=== PATIENT | male | born 1975 | race Two or more races ===

== ENCOUNTER 2022-05-28 12:04 | Outpatient (REF) | payer OTHER, SELFPAY ==
[2022-05-28 13:42] LABS: MANUAL DIFF FLAG NO
[2022-05-28 13:50] LABS: Basophils Percent Auto 0.4 % (0-2); Eosinophils Absolute Auto 0.3 X10*3/uL (0.0-0.4); Eosinophils Percent Auto 5.4 % (0-4); Hematocrit 45.2 % (42.0-52.0); Hemoglobin 14.5 g/dl (14.0-18.0); Imm Gran Abs Auto 0.01 X10*3/uL (0.00-0.03); Imm Gran Pct Auto 0.2 % (0.0-0.4); Lymphocytes Percent Auto 41.2 % (20-40); Mean Corpuscular HGB Conc 32.1 g/dl (31.0-36.0); Mean Corpuscular Hemoglobin 27.3 pg (27.0-33.0); Mean Platelet Volume 10.6 fL (9.4-12.4); Monocytes Absolute Auto 0.5 X10*3/uL (0.1-1.2); Monocytes Percent Auto 9.7 % (2-11); Neutrophils Absolute Auto 2.1 x10*3/uL (2.0-8.3); Neutrophils Percent Auto 43.1 % (45-73); Platelet Count 255 X10*3/uL (160-400); Red Blood Count 5.32 X10*6/uL (4.60-5.80); Red Cell Distribution Width 13.9 % (11.0-16.0); White Blood Count 4.9 X10*3/uL (4.8-10.8)
[2022-05-28 14:13] LABS: Alanine Aminotransferase 45 U/L (0-40); Albumin Level 3.8 g/dL (3.5-5.0); Alkaline Phosphatase 81 U/L (39-117); Anion Gap 11 (12-20); Aspartate Amino Transferase 23 U/L (5-37); Bilirubin Total 1.1 mg/dL (0.0-1.0); Blood Urea Nitrogen 7 mg/dL (9-16); Calcium 9.2 mg/dL (8.4-10.2); Carbon Dioxide 29 mmol/L (22-29); Chloride 104 mmol/L (96-108); Cholesterol 133 mg/dL; Estimated Glomerular Filt Rate > 60; Glucose Fasting 90 mg/dL (60-99); HDL Cholesterol 39 mg/dL; LDL Cholesterol Calculated 73 mg/dl; Potassium 4.9 mmol/L (3.3-5.1); Sodium 139 mmol/L (135-145); Total Protein 7.2 g/dL (6.5-8.0); Triglycerides 108 mg/dL
[2022-05-28 14:18] LABS: TSH reflex Free T4 0.57 uIU/mL (0.32-4.0)
== END 2022-05-28 12:05 | disposition home or self-care (01) ==
LOC: HO.HMGCLDS 12:04
PROVIDERS: PCP Internal Medicine; Visit Provider Internal Medicine
DX: Z00.01 Encounter for general adult medical examination with abnormal findings (principal); E66.01 Morbid (severe) obesity due to excess calories; M79.89 Other specified soft tissue disorders
CPT/HCPCS: 36415; 80053; 80061; 84443; 85025

== ENCOUNTER → 2022-07-01 13:06 | Outpatient (BNVA) | payer OTHER, SELFPAY | PROVIDERS: PCP Internal Medicine; Visit Provider Nurse Practitioner Family | DX: R06.81 Apnea, not elsewhere classified (principal); R06.83 Snoring; R40.0 Somnolence; E66.01 Morbid (severe) obesity due to excess calories; Z68.43 Body mass index [BMI] 50.0-59.9, adult | CPT/HCPCS: 99202 ==

== ENCOUNTER → 2022-07-21 10:59 | Outpatient (REF) | payer OTHER, SELFPAY | LOC: HO.SL 10:59 | PROVIDERS: PCP Internal Medicine; Visit Provider Nurse Practitioner Family | DX: G47.33 Obstructive sleep apnea (adult) (pediatric) (principal); R06.83 Snoring; R40.0 Somnolence | CPT/HCPCS: 95806 ==

== ENCOUNTER → 2022-08-24 11:15 | Outpatient (BNVA) | payer OTHER, SELFPAY | PROVIDERS: PCP Internal Medicine; Visit Provider Physician Assistant | DX: R10.13 Epigastric pain (principal); K21.9 Gastro-esophageal reflux disease without esophagitis; R19.5 Other fecal abnormalities; E66.01 Morbid (severe) obesity due to excess calories; Z68.44 Body mass index [BMI] 60.0-69.9, adult; K58.9 Irritable bowel syndrome, unspecified; Z78.9 Other specified health status | CPT/HCPCS: 99202; 99212 ==

== ENCOUNTER → 2022-09-30 13:45 | Outpatient (BNVA) | payer OTHER, SELFPAY | PROVIDERS: PCP Internal Medicine; Visit Provider Nurse Practitioner Family | DX: G47.33 Obstructive sleep apnea (adult) (pediatric) (principal); E66.01 Morbid (severe) obesity due to excess calories; Z68.44 Body mass index [BMI] 60.0-69.9, adult | CPT/HCPCS: 99212 ==

== ENCOUNTER 2022-10-02 08:42 | Outpatient (REF) | payer OTHER, SELFPAY ==
--- NOTE | ~2022-10-02 | US_ITS ---
EXAMINATION: US ABDOMEN LIMITED WITH LIVER ELASTOGRAPHY CLINICAL INFORMATION: Epigastric pain COMPARISON: Previous CT of the abdomen and pelvis September 2014 TECHNIQUE: Real-time imaging of the abdominal viscera. Noninvasive ultrasound liver fibrosis assessment is performed using [place] ElastPQ point quantification shear wave elastography (2D-SWE) with a C5-2 MHz transducer. Multiple elastography samples are obtained. Exam is limited due to patient body habitus. Grayscale and imaging of the infraumbilical abdominal wall was also performed. FINDINGS: PANCREAS: Normal. LIVER: Liver echotexture is increased. The liver demonstrates normal size, and contour. No focal lesion or intrahepatic biliary duct dilatation. The right lobe measures 15 cm in length. The left lobe measures 12 cm in length. Portal flow is normal/hepatopedal ELASTOGRAPHY is nondiagnostic as deeper parts of the liver could not be adequately sampled. Shear wave liver elastography median stiffness is 1.9 m/s (reference: normal median stiffness is 1.3 m/s or less). IQR/median stiffness to assess sampling precision is 0.07 (reference: good quality data set is IQR/median stiffness of 0.15 or less). GALLBLADDER: Surgically removed COMMON BILE DUCT: Normal in caliber measuring 0.5 cm in diameter. RIGHT KIDNEY: Normal. No hydronephrosis. No renal calculi or focal parenchymal lesions. The kidney measures 11.8 cm in maximum dimension. FREE FLUID: None. No abdominal wall abnormality is appreciated by ultrasound. US/US abdomen burris w elastography IMPRESSION: 1. Impression: Limited exam. Echogenic liver probably representing fatty infiltration. 2. Liver elastography: Nondiagnostic. REFERENCE: Society of Radiologists in Ultrasound Liver Stiffness Thresholds (2020): LIVER STIFFNESS THRESHOLDS: *Liver Stiffness equal or less than 1.3 m/s: High probability of being normal. *Liver Stiffness less than 1.7 m/s: In the absence of other known clinical signs, rules out compensated advanced chronic liver disease. *Liver Stiffness 1.7-2.1 m/s: Suggestive of compensated advanced chronic liver disease but need further test for confirmation. *Liver Stiffness over 2.1 m/s: Rules in compensated advanced chronic liver disease. *Liver Stiffness over 2.4 m/s: Suggestive of clinically significant portal hypertension. QUALITY OF DATA SET: *IQR/Median value equal or less than 0.15 implies a quality data set. *IQR/Median value over 0.15 implies a poor quality data set. SIGNIFICANT CHANGE FROM PRIOR EXAM: Significant change if liver stiffness measurement is 10% or greater from prior exam. OTHER CONSIDERATIONS: The stage of liver fibrosis may be overestimated in the setting of acute hepatitis, liver inflammation, elevated liver function tests, hepatic vascular congestion, obstructive cholestasis, non-fasting state, and infiltrative diseases such as amyloidosis and lymphoma. In some patients with NAFLD, the liver stiffness thresholds for compensated advanced chronic liver disease may be lower. In causes other than viral hepatitis and NAFLD, liver stiffness thresholds are not well established.
== END 2022-10-02 08:43 | disposition home or self-care (01) ==
LOC: HO.US 08:42
PROVIDERS: Visit Provider Physician Assistant
DX: R10.13 Epigastric pain (principal); E66.9 Obesity, unspecified
CPT/HCPCS: 76705; 76981

== ENCOUNTER 2022-10-08 08:24 | Outpatient (REF) | payer OTHER, SELFPAY ==
--- NOTE | ~2022-10-08 | FL_ITS ---
EXAMINATION: FL BARIUM SWALLOW CLINICAL INFORMATION: Z78.9 - Other specified health status. COMPARISON: Abdominal radiograph September 2014. TECHNIQUE: Barium swallow examination is performed using fluoroscopic evaluation in addition to multiple fluoroscopic spot views. The patient is imaged both upright and prone and using both thick and thin sulfate along with effervescent granules. FLUOROSCOPY TIME: 1.2 minutes TOTAL: 56.455 mGy DAP: 18.013 Gy-cm2 IMAGES: 26 screen save images FINDINGS: The swallowing mechanism is normal without aspiration or penetration. Motility is normal. No mass or ulceration or stricture. Contrast passes normally into the stomach. There is an intermittent small hiatal hernia noted with the patient in the prone position. There is no reflux with the patient in the supine position. The images of the stomach are normal. FL/FL barium swallow IMPRESSION: Small hiatal hernia identified with the patient in the prone position only. No reflux documented.
== END 2022-10-08 08:25 | disposition home or self-care (01) ==
LOC: HO.XRAY 08:24
PROVIDERS: Visit Provider Physician Assistant
DX: R10.13 Epigastric pain (principal); K21.9 Gastro-esophageal reflux disease without esophagitis; R19.5 Other fecal abnormalities; Z78.9 Other specified health status
CPT/HCPCS: 74220

== ENCOUNTER → 2023-01-06 09:51 | Outpatient (BNVA) | payer OTHER, SELFPAY | PROVIDERS: PCP Internal Medicine; Visit Provider Nurse Practitioner Family | DX: G47.33 Obstructive sleep apnea (adult) (pediatric) (principal); E66.9 Obesity, unspecified; Z99.89 Dependence on other enabling machines and devices | CPT/HCPCS: 99212 ==

== ENCOUNTER 2023-01-22 14:20 | Outpatient (REF) | payer OTHER, SELFPAY ==
--- NOTE | ~2023-01-22 | US_ITS ---
EXAMINATION: US RETROPERITONEAL LIMITED (RENAL ONLY) CLINICAL INFORMATION: Hematuria. COMPARISON: Ultrasound abdomen 10/02/2022, x-ray abdomen 09/11/2014, CT abdomen and pelvis 09/11/2014. TECHNIQUE: Real-time imaging of the kidneys. FINDINGS: RIGHT KIDNEY: 11.3 x 4.8 x 5.6 cm (SAG x AP x TRV). The kidney is normal in size, contour, and echogenicity. Renal cortical thickness is normal. No calculi or focal parenchymal lesions. No hydronephrosis. LEFT KIDNEY: 12.7 x 5.9 x 6.3 cm (SAG x AP x TRV). The kidney is normal in size, contour, and echogenicity. Renal cortical thickness is normal. No calculi or focal parenchymal lesions. No hydronephrosis. US/US renal BI IMPRESSION: Normal-appearing kidneys. A cause for the patient's hematuria has not been found.
== END 2023-01-22 14:21 | disposition home or self-care (01) ==
LOC: HO.HMGCX 14:20
PROVIDERS: PCP Internal Medicine; Visit Provider Internal Medicine
DX: R31.9 Hematuria, unspecified (principal)
CPT/HCPCS: 76775

== ENCOUNTER 2023-10-20 12:07 | Outpatient (AMB) | payer OTHER, SELFPAY ==
[2023-10-20 12:16] VITALS: BP 104/62; PULSE 65; O2SAT 98; BMI 54.4
--- NOTE | 2023-10-20 12:16 | MHC.PC.OV ---
Vital Signs 10/20/23 12:16 Height 5 ft 6 in Weight 337 lb BMI 54.4 BP 104/62 Blood Pressure Location Rt brachial Position Sitting Pulse 65 Pulse Source Pulse Oximeter Pulse Oximetry (%) 98 Oxygen Delivery Method Room Air Intake Visit Reasons: 4 Month follow up anxiety (rescheduled) Allergies No Known Allergies Allergy (Verified 10/20/23 12:18) Medication List - Last Reconciled 10/20/23 by Zaina Junior MD albuterol sulfate 90 mcg/actuation (Ventolin HFA) 1 inh inhalation QID PRN 30 days albuterol sulfate 90 mcg/actuation (ProAir HFA) 2 puffs inhalation Q4-6H PRN 30 days buspirone 5 mg PO BID PRN 90 days famotidine 20 mg PO BID hydrocortisone 2.5% 1 appl topical BID PRN 30 days nystatin 1 appl topical DAILY 30 days omeprazole 20 mg PO DAILY 90 days ondansetron mg PO Tobacco use date assessed: 10/20/23 Dental Screening Dental Screen Date: 10/20/23 Did you have a dental visit in the last 12 months?: Yes Did you have a dental problem in the last 6 months where you did not have access to dental care?: Yes Was dental information given to patient?: Patient has dentist HPI 4 Month follow up anxiety (rescheduled) HPI Details Patient is a 48-year-old male who got bit by random talk on 13 of October left side of abdomen Patient went to [facility] for treatment he was started on antibiotic and rabies vaccination. Which he is still going through. Wound is healing Patient is also feeling depressed he is currently seeing psychiatrist as well as therapist He is taking a depression medication through Psychiatry and also taking buspirone for anxiety through this office. He has developed tenia pedis and is requesting treatment I have sent Lotrisone cream that he is to apply at night until rash is resolved. Patient is morbidly obese with BMI of above 50 Continued to have swelling of his ankles off and on. And is complaining of pain in his knees as well. I have ordered labs for the patient we will also set up time for physical exam in January. He is taking famotidine and omeprazole for chronic GERD PFSH Surgical History Hx of cholecystectomy Family History Brother Substance use disorder Brother Substance use disorder Maternal Uncle Substance use disorder Paternal Uncle Substance use disorder Social History Housing: House Alcohol intake: former Patient Tobacco Use Status: Never used Tobacco e-Cigarette/Vaping Use: Never Used Substance Use Type: Marijuana service: No Current occupational status: unemployed Current occupational exposures/hazards: No Cognitive needs: No Hearing needs: No Vision needs: Yes Questionnaire PHQ-9 Over the last 2 weeks, how often have you been bothered by any of the following problems? 1. Little interest or pleasure in doing things: several days 2. Feeling down, depressed, or hopeless: several days 3. Trouble falling or staying asleep, or sleeping too much: nearly every day 4. Feeling tired or having little energy: nearly every day 5. Poor appetite or overeating: more than half the days 6. Feeling bad about yourself - or that you are a failure or have let yourself or your family down: more than half the days 7. Trouble concentrating on things, such as reading the newspaper or watching television: more than half the days 8. Moving or speaking so slowly that other people could have noticed. Or the opposite - being so fidgety or restless that you have been moving around a lot more than usual: more than half the days 9. Thoughts that you would be better off or of hurting yourself in some way: more than half the days Total score: 18 Depression Screening Interpretation: Positive Depression Screening Done: Yes 93441 - PHQ-9 Billing: Yes Source: Developed by Drs. Vish Hunter, Radha Crawley, Don Chavez and colleagues, with an educational tristian from [employer]. Thrive Questionnaire Date Thrive assessed: 10/20/23 I am a: Patient What is your living situation today?: I have a steady place to live Within the past 12 months, did the food you bought not last and you didn't have the money to get more?: Never true Within the past 12 months, did you worry whether your food would run out before you got money to buy more?: Never true Do you have trouble paying for medicines?: No Do you have trouble getting transportation to medical appointments?: No Do you have trouble paying your heating and electricity bill?: No Do you have trouble taking care of your child, family member or friend?: No Do you have trouble with day-to-day activities such as bathing, preparing meals, shopping, managing finances, etc.?: No Are you currently unemployed and looking for a job?: No Are you interested in more education?: No AUDIT C Alcohol Use Questionnaire (AUDIT-C) 1. How often do you have a drink containing alcohol?: Never Total Score: 0 ALLY-7 AMB Questionnaire ALLY-7 Date ALLY - 7 assessed: 10/20/23 Feeling nervous, anxious, or on edge: 1 = Several days Not being able to stop or control worryin = Several days Worrying too much about different things: 1 = Several days Trouble relaxin = Several days Being so restless that it is hard to sit still: 0 = Not at all Becoming easily annoyed or irritable: 1 = Several days Feeling afraid as if something awful might happen: 1 = Several days Total ALLY-7 score (0-4 normal; 5-9 mild; 10-14 moderate; 15-21 severe): 6 Source: Developed by Drs. Vish Hunter, Radha Crawley, Don Chavez and colleagues, with an educational tristian from [employer]. ALLY-7 Assessment Billing ALLY-7 Assessment Tool: ALLY-7 Assessment 23266 Review of Systems Const Denies chills and Denies fever(s) ENT Denies epistaxis and Denies nasal discharge Card Denies chest pain Resp Denies chest congestion, Denies cough and Denies hemoptysis GI Denies diarrhea and Denies nausea Neuro Reports no additional complaints Psych Reports no additional complaints Endo Reports no additional complaints Physical exam (Primary Care) Vital Signs: Last Vital Signs Pulse 65 10/20/23 12:16 BP 104/62 10/20/23 12:16 Pulse Ox 98 10/20/23 12:16 Oxygen Delivery Method Room Air 10/20/23 12:16 BMI result Body Mass Index 54.4 Tobacco/Smoking Status: Tobacco use Status Tobacco use date assessed 10/20/23 10/20/23 12:20 Patient Tobacco Use Status Never used Tobacco 10/20/23 12:20 e-Cigarette/Vaping Use Never Used 10/20/23 12:20 PHQ-9: PHQ-9 Score PHQ-9: Total score 18 10/20/23 12:42 Depression Screening Interpretation: Positive Thrive Assessment: Date of Thrive Assessment Date Thrive assessed 10/20/23 10/20/23 12:24 Const General: cooperative, comfortable and no acute distress Orientation/consciousness: patient oriented x3 HENMT Head: Yes normocephalic Eyes General: appearance normal, both eyes and all related structures Neck Neck: Yes supple Resp Effort & Inspection: normal respiratory effort, no cough and no stridor Cardio Rhythm: regular rhythm Heart sounds: S1 normal heart sound present and S2 normal heart sound present GI Abdomen image: 1. Dog bite borjas wound healing Skin Other: Tinea pedis both feet General skin exam: turgor normal Neuro General: patient oriented x3, tone normal and moves all extremities Extrem Right lower extremity: no edema Left lower extremity: no edema Assessment and Plan Assessment & Plan (1) Dog bite of abdomen: Code(s): S31.159A - Open bite of abdominal wall, unspecified quadrant without penetration into peritoneal cavity, initial encounter; W54.0XXA - Bitten by dog, initial encounter (2) Tinea pedis of both feet: Code(s): B35.3 - Tinea pedis (3) Major depression, recurrent: Code(s): F33.9 - Major depressive disorder, recurrent, unspecified Qualifiers: Active/Remission status: currently active Major depression episode severity: mild Qualified Code(s): F33.0 - Major depressive disorder, recurrent, mild (4) Morbid obesity due to excess calories: Code(s): E66.01 - Morbid (severe) obesity due to excess calories (5) Sleep apnea in adult: Code(s): G47.30 - Sleep apnea, unspecified (6) Anxiety, generalized: Code(s): F41.1 - Generalized anxiety disorder (7) Acid reflux: Code(s): K21.9 - Gastro-esophageal reflux disease without esophagitis Qualifiers: Esophagitis presence: without esophagitis Qualified Code(s): K21.9 - Gastro-esophageal reflux disease without esophagitis (8) CARLA (obstructive sleep apnea): Comment: Severe degree of sleep apnea. The total AHI was 24/hr and oxygen frederick was 71 %. Code(s): G47.33 - Obstructive sleep apnea (adult) (pediatric) Plan Patient is a 48-year-old male who got bit by random talk on 13 of October left side of abdomen Patient went to [facility] for treatment he was started on antibiotic and rabies vaccination. Which he is still going through. Wound is healing Patient is also feeling depressed he is currently seeing psychiatrist as well as therapist He is taking a depression medication through Psychiatry and also taking buspirone for anxiety through this office. He has developed tenia pedis and is requesting treatment I have sent Lotrisone cream that he is to apply at night until rash is resolved. Patient is morbidly obese with BMI of above 50, I did offer weight loss program appointment which patient declined at this time he said he will think about it Continued to have swelling of his ankles off and on. And is complaining of pain in his knees as well. I have ordered labs for the patient we will also set up time for physical exam in January. He is taking famotidine and omeprazole for chronic GERD Sleep apnea treatment through neurology, patient happened appointment in December Orders: Orders Lipid Panel Today E66.01 - Morbid (severe) obesity due to excess calories, F33.9 - Major depressive disorder, recurrent, unspecified, F41.1 - Generalized anxiety disorder, G47.30 - Sleep apnea, unspecified, G47.33 - Obstructive sleep apnea (adult) (pediatric), K21.9 - Gastro-esophageal reflux disease without esophagitis TSH reflex Free T4 Today E66.01 - Morbid (severe) obesity due to excess calories, F33.9 - Major depressive disorder, recurrent, unspecified, F41.1 - Generalized anxiety disorder, G47.30 - Sleep apnea, unspecified, G47.33 - Obstructive sleep apnea (adult) (pediatric), K21.9 - Gastro-esophageal reflux disease without esophagitis Complete Blood Count Auto Diff Today E66.01 - Morbid (severe) obesity due to excess calories, F33.9 - Major depressive disorder, recurrent, unspecified, F41.1 - Generalized anxiety disorder, G47.30 - Sleep apnea, unspecified, G47.33 - Obstructive sleep apnea (adult) (pediatric), K21.9 - Gastro-esophageal reflux disease without esophagitis Comprehensive [place]. Panel Fast Today E66.01 - Morbid (severe) obesity due to excess calories, F33.9 - Major depressive disorder, recurrent, unspecified, F41.1 - Generalized anxiety disorder, G47.30 - Sleep apnea, unspecified, G47.33 - Obstructive sleep apnea (adult) (pediatric), K21.9 - Gastro-esophageal reflux disease without esophagitis Medications: New clotrimazole-betamethasone 1-0.05 % 1 appl topical ONCE 45 grams 3RF foot rash 30 days Coding Level of Care Code Est Pt Level 4 (29855) Diagnoses Dog bite of abdomen S31.159A; W54.0XXA Tinea pedis of both feet B35.3 Mild episode of recurrent major depressive disorder F33.0 Active/Remission status: currently active Major depression episode severity: mild Morbid obesity due to excess calories E66.01 Sleep apnea in adult G47.30 Anxiety, generalized F41.1 Gastroesophageal reflux disease without esophagitis K21.9 Esophagitis presence: without esophagitis CARLA (obstructive sleep apnea) G47.33 Additional Codes ALLY-7 Assessment Billing - ALLY-7 Assessment Tool: ALLY-7 Assessment 56539 ([id number])
== END 2023-10-20 16:49 | disposition home or self-care (01) ==
PROVIDERS: PCP Internal Medicine; Visit Provider Internal Medicine
DX: S31.159A Open bite of abdominal wall, unspecified quadrant without penetration into peritoneal cavity, initial encounter (principal); F33.0 Major depressive disorder, recurrent, mild; E66.01 Morbid (severe) obesity due to excess calories; Z68.43 Body mass index [BMI] 50.0-59.9, adult; W54.0XXA Bitten by dog, initial encounter; B35.3 Tinea pedis; G47.30 Sleep apnea, unspecified; F41.1 Generalized anxiety disorder; K21.9 Gastro-esophageal reflux disease without esophagitis; G47.33 Obstructive sleep apnea (adult) (pediatric)
CPT/HCPCS: 96127; 99214

== ENCOUNTER 2024-01-26 08:48 | Outpatient (REF) | payer OTHER, SELFPAY ==
[2024-01-26 10:17] LABS: MANUAL DIFF FLAG NO
[2024-01-26 10:22] LABS: Basophils Percent Auto 0.5 % (0-2); Eosinophils Absolute Auto 0.1 X10*3/uL (0.0-0.4); Eosinophils Percent Auto 3.6 % (0-4); Hematocrit 45.3 % (42.0-52.0); Imm Gran Abs Auto 0.01 X10*3/uL (0.00-0.03); Imm Gran Pct Auto 0.3 % (0.0-0.4); Lymphocytes Absolute Auto 1.9 X10*3/uL (1.2-4.9); Lymphocytes Percent Auto 48.7 % (20-40); Mean Corpuscular HGB Conc 33.1 g/dl (31.0-36.0); Mean Corpuscular Hemoglobin 28.3 pg (27.0-33.0); Mean Corpuscular Volume 85.5 fL (80.0-98.0); Mean Platelet Volume 11.1 fL (9.4-12.4); Monocytes Absolute Auto 0.4 X10*3/uL (0.1-1.2); Monocytes Percent Auto 9.7 % (2-11); Neutrophils Absolute Auto 1.5 x10*3/uL (2.0-8.3); Neutrophils Percent Auto 37.2 % (45-73); Platelet Count 239 X10*3/uL (160-400); White Blood Count 3.9 X10*3/uL (4.8-10.8)
[2024-01-26 11:16] LABS: Alanine Aminotransferase 18 U/L (0-40); Albumin Level 3.5 g/dL (3.5-5.0); Alkaline Phosphatase 74 U/L (39-117); Anion Gap 8 (12-20); Aspartate Amino Transferase 13 U/L (5-37); Bilirubin Total 0.9 mg/dL (0.0-1.0); Blood Urea Nitrogen 9 mg/dL (9-16); Calcium 9.3 mg/dL (8.4-10.2); Carbon Dioxide 30 mmol/L (22-29); Chloride 105 mmol/L (96-108); Cholesterol 116 mg/dL (<200); Estimated Glomerular Filt Rate > 60; Glucose Fasting 91 mg/dL (60-99); HDL Cholesterol 33 mg/dL (>40); LDL Cholesterol Calculated 59 mg/dL (<100); Potassium 4.1 mmol/L (3.3-5.1); Sodium 139 mmol/L (135-145); TSH reflex Free T4 0.58 uIU/mL (0.32-4.0); Triglycerides 122 mg/dL (<150)
== END 2024-01-26 08:49 | disposition home or self-care (01) ==
LOC: HO.HMGCLDS 08:48
PROVIDERS: PCP Internal Medicine; Visit Provider Internal Medicine
DX: F33.9 Major depressive disorder, recurrent, unspecified (principal); E66.01 Morbid (severe) obesity due to excess calories; F41.1 Generalized anxiety disorder; K21.9 Gastro-esophageal reflux disease without esophagitis; G47.33 Obstructive sleep apnea (adult) (pediatric)
CPT/HCPCS: 36415; 80053; 80061; 84443; 85025

== ENCOUNTER 2024-02-25 13:18 | Outpatient (AMB) | payer OTHER, SELFPAY ==
[2024-02-25 13:27] VITALS: BP 106/78; PULSE 73; O2SAT 98; BMI 53.0
--- NOTE | 2024-02-25 13:27 | A.OFFPC_ITS ---
Vital Signs 02/25/24 13:27 Height 5 ft 6 in Weight 328 lb 6 oz BMI 53.0 BP 106/78 Blood Pressure Location Rt brachial Position Sitting Pulse 73 Pulse Source Pulse Oximeter Pulse Oximetry (%) 98 Oxygen Delivery Method Room Air Intake Visit Reasons: Annual PE Allergies No Known Allergies Allergy (Verified 02/25/24 13:29) Medication List - Last Reconciled 02/25/24 by Zaina Junior MD albuterol sulfate 90 mcg/actuation (Ventolin HFA) 1 inh inhalation QID PRN 30 days albuterol sulfate 90 mcg/actuation (ProAir HFA) 2 puffs inhalation Q4-6H PRN 30 days buspirone 5 mg PO BID PRN 90 days clotrimazole-betamethasone 1-0.05 % 1 appl topical ONCE 30 days famotidine 20 mg PO BID hydrocortisone 2.5% 1 appl topical BID PRN 30 days nystatin 1 appl topical DAILY 30 days omeprazole 20 mg PO DAILY 90 days ondansetron mg PO Tobacco use date assessed: 02/25/24 Dental Screening Dental Screen Date: 02/25/24 Did you have a dental visit in the last 12 months?: Yes Did you have a dental problem in the last 6 months where you did not have access to dental care?: No Was dental information given to patient?: Patient has dentist HPI Annual PE HPI Details Physical exam appointment Due for colonoscopy Patient is complaining of pain right hip and left knee I have ordered x-rays for the patient and he will be evaluated by Orthopedic Medication list reviewed Asthma is stable Anxiety is stable patient is on buspirone 5 mg 2 tablets in the morning and then 1 later in the day Patient is morbidly obese with BMI of 53.0, he has a small ventral l hernia below umbilicus as well For that I would recommend to lose weight before he have any surgical intervention GERD: He is taking famotidine 20 mg and omeprazole 20 mg We talked about diet-controlled to avoid all those food that worsened his symptoms. He will return in 4 months for follow-up appointment 1 year physical exam Labs done recently reviewed [facility] Surgical History Hx of cholecystectomy Family History Brother Substance use disorder Brother Substance use disorder Maternal Uncle Substance use disorder Paternal Uncle Substance use disorder Social History Housing: House Alcohol intake: former Patient Tobacco Use Status: Never used Tobacco e-Cigarette/Vaping Use: Never Used Substance Use Type: Marijuana service: No Current occupational status: unemployed Current occupational exposures/hazards: No Cognitive needs: No Hearing needs: No Vision needs: Yes Questionnaire PHQ-9 Over the last 2 weeks, how often have you been bothered by any of the following problems? 1. Little interest or pleasure in doing things: several days 2. Feeling down, depressed, or hopeless: several days 3. Trouble falling or staying asleep, or sleeping too much: more than half the days 4. Feeling tired or having little energy: more than half the days 5. Poor appetite or overeating: more than half the days 6. Feeling bad about yourself - or that you are a failure or have let yourself or your family down: more than half the days 7. Trouble concentrating on things, such as reading the newspaper or watching television: several days 8. Moving or speaking so slowly that other people could have noticed. Or the opposite - being so fidgety or restless that you have been moving around a lot more than usual: several days 9. Thoughts that you would be better off or of hurting yourself in some way: several days Total score: 13 Depression Screening Interpretation: Positive Depression Screening Follow-up: Existing condition and In treatment Depression Screening Done: Yes 43256 - PHQ-9 Billing: Yes Source: Developed by Drs. Vish Hunter, Radha Crawley, Don Chavez and colleagues, with an educational tristian from [employer]. Thrive Questionnaire Date Thrive assessed: 02/25/24 What is your living situation today?: I do not have a steady places to live I am temporarily staying with others Within the past 12 months, did the food you bought not last and you didn't have the money to get more?: Sometimes True Within the past 12 months, did you worry whether your food would run out before you got money to buy more?: Sometimes True Do you have trouble paying for medicines?: No Do you have trouble getting transportation to medical appointments?: No Do you have trouble paying your heating and electricity bill?: No Do you have trouble taking care of your child, family member or friend?: No Do you have trouble with day-to-day activities such as bathing, preparing meals, shopping, managing finances, etc.?: No Are you currently unemployed and looking for a job?: No Are you interested in more education?: No Please select the resources that you would like help with: Housing/Penitentiary, Transportation and Job search/training Currently or been in a relationship where the following occur: no concerns reported THRIVE Score: 3 AUDIT C Alcohol Use Questionnaire (AUDIT-C) 1. How often do you have a drink containing alcohol?: Never 3. How often do you have six or more drinks on one occasion?: Never Total Score: 0 Score Reviewed/Action Taken: Yes ALLY-7 AMB Questionnaire ALLY-7 Date ALLY - 7 assessed: 02/25/24 Feeling nervous, anxious, or on edge: 1 = Several days Not being able to stop or control worryin = Several days Worrying too much about different things: 1 = Several days Trouble relaxin = Several days Being so restless that it is hard to sit still: 1 = Several days Becoming easily annoyed or irritable: 1 = Several days Feeling afraid as if something awful might happen: 1 = Several days Total ALLY-7 score (0-4 normal; 5-9 mild; 10-14 moderate; 15-21 severe): 7 Source: Developed by Drs. Vish Hunter, Radha Crawley, Don Chavez and colleagues, with an educational tristian from [employer]. ALLY-7 Assessment Billing ALLY-7 Assessment Tool: ALLY-7 Assessment 56269 Review of Systems Const Denies chills, Denies fever(s) and Denies headache(s) Eyes Denies blurry vision ENT Denies headache(s), Denies nasal discharge, Denies nasal obstruction, Denies odynophagia and Denies sinus pain Card Denies chest pain at rest and Denies chest pain with activity Resp Denies cough and Denies hemoptysis GI Denies diarrhea, Denies odynophagia, Denies vomiting and Denies hematemesis Reports as per HPI Musc Denies abnormal gait Skin/Breast Reports as per HPI Neuro Denies Neuro-related abnormal movements, Denies Abnormal speech present, Denies abnormal gait, Denies headache(s) and Denies Sensory deficit (Neuro) Psych Denies mood swings and Denies paranoia Endo Reports as per HPI Denny/Lymph Reports as per HPI Aller/Immun Reports as per HPI Physical exam (Primary Care) Vital Signs: Last Vital Signs Pulse 73 02/25/24 13:27 BP 106/78 02/25/24 13:27 Pulse Ox 98 02/25/24 13:27 Oxygen Delivery Method Room Air 02/25/24 13:27 BMI result Body Mass Index 53.0 Tobacco/Smoking Status: Tobacco use Status Tobacco use date assessed 02/25/24 02/25/24 13:29 Patient Tobacco Use Status Never used Tobacco 02/25/24 13:29 e-Cigarette/Vaping Use Never Used 02/25/24 13:29 PHQ-9: PHQ-9 Score PHQ-9: Total score 13 02/25/24 13:31 Depression Screening Interpretation: Positive Depression Screening Follow-up: Existing condition and In treatment Thrive Assessment: Date of Thrive Assessment Date Thrive assessed 02/25/24 02/25/24 13:31 Currently or been in a relationship where the following occur: no concerns reported Const General: cooperative, comfortable and no acute distress Orientation/consciousness: patient oriented x3 HENMT Head: Yes normocephalic and Yes atraumatic Eyes General: appearance normal, both eyes and all related structures Pupils: Equal, round and reactive pupils present EOM: EOMs intact bilaterally Neck Neck: Yes supple and No lymphadenopathy Thyroid: Thyroid normal Lymphatic: no lymphadenopathy noted Resp Effort & Inspection: normal respiratory effort and able to speak in complete sentences Auscultation: clear to auscultation bilaterally Cardio Heart sounds: S1 normal heart sound present and S2 normal heart sound present GI Other: Small bulge below umbilicus which is difficulty appreciate laying down Palpation (GI): Soft to palpation and nontender Auscultation: normal bowel sounds General: Yes no CVA tenderness Back/Spine/Pelvis Back: no CVA tenderness Skin General skin exam: elasticity normal and turgor normal Neuro General: patient oriented x3 and gait normal Cranial nerves: Yes Equal, round and reactive pupils present Speech: No Abnormal speech present Sensory Exam: No Sensory deficit (Neuro) Coordination: tandem gait normal and Romberg test negative Extrem General: Yes normal exam except as noted and No edema Assessment and Plan Assessment & Plan (1) Encounter for general adult medical examination with abnormal findings: Code(s): Z00.01 - Encounter for general adult medical examination with abnormal findings (2) Hip pain, right: Code(s): M25.551 - Pain in right hip (3) Knee pain, left: Code(s): M25.562 - Pain in left knee Qualifiers: Chronicity: acute Qualified Code(s): M25.562 - Pain in left knee (4) Colon cancer screening: Code(s): Z12.11 - Encounter for screening for malignant neoplasm of colon (5) Morbid obesity due to excess calories: Code(s): E66.01 - Morbid (severe) obesity due to excess calories (6) Major depression, recurrent: Code(s): F33.9 - Major depressive disorder, recurrent, unspecified Qualifiers: Active/Remission status: currently active Major depression episode severity: mild Qualified Code(s): F33.0 - Major depressive disorder, recurrent, mild (7) Sleep apnea in adult: Code(s): G47.30 - Sleep apnea, unspecified (8) Anxiety, generalized: Code(s): F41.1 - Generalized anxiety disorder (9) Ventral hernia: Code(s): K43.9 - Ventral hernia without obstruction or gangrene Qualifiers: Obstruction and gangrene presence: without obstruction or gangrene Qualified Code(s): K43.9 - Ventral hernia without obstruction or gangrene Plan Physical exam appointment Due for colonoscopy Patient is complaining of pain right hip and left knee I have ordered x-rays for the patient and he will be evaluated by Orthopedic Medication list reviewed Asthma is stable Anxiety is stable patient is on buspirone 5 mg 2 tablets in the morning and then 1 later in the day Patient is morbidly obese with BMI of 53.0, he has a small ventral l hernia below umbilicus as well For that I would recommend to lose weight before he have any surgical intervention GERD: He is taking famotidine 20 mg and omeprazole 20 mg We talked about diet-controlled to avoid all those food that worsened his symptoms. He will return in 4 months for follow-up appointment 1 year physical exam Labs done recently reviewed Orders: Orders XR knee LT 2V Today M25.562 - Pain in left knee XR hip RT min 2V Today M25.551 - Pain in right hip Referrals Orthopedics Referral M25.551 - Pain in right hip, M25.562 - Pain in left knee Gastroenterology Referral Z12.11 - Encounter for screening for malignant neoplasm of colon Coding Level of Care Code Est Pt Prev Care 40-64y(91133) Diagnoses Encounter for general adult medical examination with abnormal findings Z00.01 Hip pain, right M25.551 Acute pain of left knee M25.562 Chronicity: acute Colon cancer screening Z12.11 Morbid obesity due to excess calories E66.01 Mild episode of recurrent major depressive disorder F33.0 Active/Remission status: currently active Major depression episode severity: mild Sleep apnea in adult G47.30 Anxiety, generalized F41.1 Ventral hernia without obstruction or gangrene K43.9 Obstruction and gangrene presence: without obstruction or gangrene Additional Codes ALLY-7 Assessment Billing - ALLY-7 Assessment Tool: ALLY-7 Assessment 45953 ([id number])
== END 2024-02-25 13:45 | disposition home or self-care (01) ==
PROVIDERS: PCP Internal Medicine; Visit Provider Internal Medicine
DX: Z00.00 Encounter for general adult medical examination without abnormal findings (principal); E66.01 Morbid (severe) obesity due to excess calories; F33.0 Major depressive disorder, recurrent, mild; Z68.43 Body mass index [BMI] 50.0-59.9, adult; M25.551 Pain in right hip; M25.562 Pain in left knee; K43.9 Ventral hernia without obstruction or gangrene; K21.9 Gastro-esophageal reflux disease without esophagitis; Z12.11 Encounter for screening for malignant neoplasm of colon; G47.30 Sleep apnea, unspecified; F41.1 Generalized anxiety disorder
CPT/HCPCS: 99396

== ENCOUNTER 2024-02-25 13:49 | Outpatient (REF) | payer OTHER, SELFPAY ==
--- NOTE | ~2024-02-25 | XR_ITS ---
EXAMINATION: XR KNEE, LEFT CLINICAL INFORMATION: Pain. COMPARISON: None available. TECHNIQUE: AP and lateral views of the left knee. FINDINGS: No fracture or joint effusion. Alignment is anatomic. Joint spaces are maintained. No abnormal soft tissue calcification. XR/XR knee LT 2V IMPRESSION: Normal left knee.
--- NOTE | ~2024-02-25 | XR_ITS ---
EXAMINATION: XR HIP, RIGHT CLINICAL INFORMATION: Pain. COMPARISON: None available. TECHNIQUE: AP and frog-leg lateral views of the right hip are submitted. FINDINGS: No fracture. Alignment is anatomic. Hip joint space is maintained. Soft tissues are unremarkable. XR/XR hip RT min 2V IMPRESSION: Normal right hip.
== END 2024-02-25 13:50 | disposition home or self-care (01) ==
LOC: HO.HMGCX 13:49
PROVIDERS: PCP Internal Medicine; Visit Provider Internal Medicine
DX: M25.562 Pain in left knee (principal); M25.551 Pain in right hip
CPT/HCPCS: 73502; 73560

== ENCOUNTER 2024-03-15 13:45 | Outpatient (AMB) | payer OTHER, SELFPAY ==
--- NOTE | 2024-03-15 13:50 | MHC.OFFVIS ---
Vital Signs 03/15/24 13:52 Height 5 ft 6 in Weight 328 lb BMI 52.9 Intake Visit Reasons: 2 Month FU-CONF Intake Note: Patient presents for 2 month follow up. Patient still waking up with anxiety while using machine Allergies No Known Allergies Allergy (Verified 03/15/24 14:02) Medication List - Last Reconciled 03/15/24 by ELIZABETH Lowe albuterol sulfate 90 mcg/actuation (Ventolin HFA) 1 inh inhalation QID PRN 30 days albuterol sulfate 90 mcg/actuation (ProAir HFA) 2 puffs inhalation Q4-6H PRN 30 days buspirone 5 mg PO BID PRN 90 days clonidine HCl 0.1 mg PO BEDTIME clotrimazole-betamethasone 1-0.05 % 1 appl topical ONCE 30 days escitalopram oxalate 20 mg PO DAILY famotidine 20 mg PO BID hydrocortisone 2.5% 1 appl topical BID PRN 30 days nystatin 1 appl topical DAILY 30 days omeprazole 20 mg PO DAILY 90 days ondansetron mg PO sertraline 50 mg PO DAILY HPI Comments Details: 48-yr-old male presents for follow-up visit of sleep apnea. Pt has not been using his APAP machine, as when he uses it, he wakes up feeling like he cannot breathe which triggers anxiety. Once anxious, he has to get OOB and walk around until he calms down. He states he is only able to sleep 4-5 hrs per night, and is very tired and sleepy during the day. Pt denies taking any OTC sleep agents or alcohol. He is on Clonidine 0.1mg per psych. Previous PAP compliance report, 07/04/23 - 10/01/23- showed minimal use, but when pt did use APA [id number], he had residual AHI 19.6/hr w/ central apnea events 12.9/hr. PFSH Surgical History Hx of cholecystectomy Family History Brother Substance use disorder Brother Substance use disorder Maternal Uncle Substance use disorder Paternal Uncle Substance use disorder Social History Housing: House Alcohol intake: former Patient Tobacco Use Status: Never used Tobacco e-Cigarette/Vaping Use: Never Used Substance Use Type: Marijuana service: No Current occupational status: unemployed Current occupational exposures/hazards: No Cognitive needs: No Hearing needs: No Vision needs: Yes Review of Systems Const All systems reviewed & are unremarkable except as noted in HPI and below Physical Exam Vital Signs: BMI result Body Mass Index 52.9 Const General: no acute distress Orientation/consciousness: patient oriented x3 Resp Effort & Inspection: able to speak in complete sentences Neuro General: patient oriented x3 Psych Mental Status: mental status grossly normal Speech and movement: Clear speech present Attitude: cooperative Assessment & Plan Assessment & Plan (1) CARLA (obstructive sleep apnea): Comment: Severe degree of sleep apnea. The total AHI was 24/hr and oxygen frederick was 71 %. Code(s): G47.33 - Obstructive sleep apnea (adult) (pediatric) Category: Medical (2) Complex sleep apnea syndrome: Code(s): G47.31 - Primary central sleep apnea Category: Medical (3) Obesity: Comment: Obesity -worsening Code(s): E66.9 - Obesity, unspecified Category: Medical Plan Pt advised to undergo in-lab PAP titration study to identify optimal PAP tx pressure settings, as pt is not tolerating current APAP [id number] tx and on APAP, he is having high levels of residual sleep apnea, primarily from central apnea. f/u upon review of above and in-clinic in 6 months or sooner pr. Orders: Orders RT PSG in-lab sleep titration Today E66.9 - Obesity, unspecified, G47.31 - Primary central sleep apnea, G47.33 - Obstructive sleep apnea (adult) (pediatric) Coding Level of Care Code Est Pt Level 3 (14621) Diagnoses CARLA (obstructive sleep apnea) G47.33 Complex sleep apnea syndrome G47.31 Obesity E66.9
[2024-03-15 13:52] VITALS: BMI 52.9
== END 2024-03-15 14:47 | disposition home or self-care (01) ==
PROVIDERS: PCP Internal Medicine; Visit Provider Nurse Practitioner Family
DX: G47.33 Obstructive sleep apnea (adult) (pediatric) (principal); G47.31 Primary central sleep apnea; E66.9 Obesity, unspecified
CPT/HCPCS: 99213

== ENCOUNTER → 2024-03-15 13:45 | Outpatient (BNVA) | payer OTHER, SELFPAY | PROVIDERS: PCP Internal Medicine; Visit Provider Nurse Practitioner Family | DX: G47.33 Obstructive sleep apnea (adult) (pediatric) (principal); G47.31 Primary central sleep apnea; E66.9 Obesity, unspecified; Z68.43 Body mass index [BMI] 50.0-59.9, adult | CPT/HCPCS: 99212 ==

== ENCOUNTER 2024-04-11 08:27 | Outpatient (REF) | payer OTHER, SELFPAY | END 2024-04-11 08:28 | disposition home or self-care (01) | LOC: HO.HOSX 08:27 | PROVIDERS: Visit Provider Physician Assistant | DX: Z13.89 Encounter for screening for other disorder (principal) ==

== ENCOUNTER 2024-05-16 07:55 | Outpatient (REF) | payer OTHER, SELFPAY ==
--- NOTE | ~2024-05-16 | XR_ITS ---
EXAMINATION: XR PELVIS CLINICAL INFORMATION: Pain unspecified hip. COMPARISON: 02/25/2024. TECHNIQUE: AP view of the pelvis. FINDINGS: Mild degenerative changes with joint space narrowing and hypertrophic change on AP views of the bilateral hips. Pubic symphysis and bilateral sacroiliac joints are maintained. XR/XR pelvis 1-2V IMPRESSION: Mild degenerative changes bilateral hips.
== END 2024-05-16 07:56 | disposition home or self-care (01) ==
LOC: HO.HOSX 07:55
PROVIDERS: Visit Provider Physician Assistant
DX: M53.3 Sacrococcygeal disorders, not elsewhere classified (principal); G89.29 Other chronic pain
CPT/HCPCS: 72170; 99202

== ENCOUNTER 2024-05-16 11:03 | Outpatient (AMB) | payer OTHER, SELFPAY ==
[2024-05-16 11:10] VITALS: BMI 52.9
--- NOTE | 2024-05-16 11:10 | A.OFFVIS_ITS ---
Vital Signs 05/16/24 11:10 Height 5 ft 6 in Weight 328 lb BMI 52.9 Intake Visit Reasons: new pt - right hip pain Intake Note: [place] 49 year old male who presents today as a new patient for an evaluation of right hip pain. Patient reports pain has been present for about 2 years, denies injury. No previous tx. His pain is located at the lateral aspect of hip that radiates down his leg. He describes his pain as a burning sensation with occasional numbness or tingling. Finds very little to no relief with Tylenol or Motrin. Allergies No Known Allergies Allergy (Verified 05/16/24 11:16) Medication List - Last Reconciled 05/16/24 by Troy Danielle PA-C albuterol sulfate 90 mcg/actuation (Ventolin HFA) 1 inh inhalation QID PRN 30 days albuterol sulfate 90 mcg/actuation (ProAir HFA) 2 puffs inhalation Q4-6H PRN 30 days buspirone 5 mg PO BID PRN 90 days clonidine HCl 0.1 mg PO BEDTIME clotrimazole-betamethasone 1-0.05 % 1 appl topical ONCE 30 days famotidine 20 mg PO BID hydrocortisone 2.5% 1 appl topical BID PRN 30 days nystatin 1 appl topical DAILY 30 days omeprazole 20 mg PO DAILY 90 days ondansetron mg PO sertraline 50 mg PO DAILY HPI HPI new pt - right hip pain: Details: 49-year-old male who presents to the office today for an evaluation of right hip pain for 2 years. He states he has pain and burning sensation at the lateral aspect of his hip that radiates down to his leg. He also experiences occasional numbness and tingling as well as occasional back pain. He deses any groin pain. He finds minimal relief with Tylenol and Motrin. He denies any injury and has not had any treatment in the past. [facility] Surgical History Hx of cholecystectomy Family History Brother Substance use disorder Brother Substance use disorder Maternal Uncle Substance use disorder Paternal Uncle Substance use disorder Social History Housing: House Alcohol intake: former Patient Tobacco Use Status: Never used Tobacco e-Cigarette/Vaping Use: Never Used Substance Use Type: Marijuana service: No Current occupational status: unemployed Current occupational exposures/hazards: No Cognitive needs: No Hearing needs: No Vision needs: Yes Review of Systems Const All systems reviewed & are unremarkable except as noted in HPI and below Physical Exam Vital Signs: BMI result Body Mass Index 52.9 Const General: cooperative, healthy appearing, comfortable, no acute distress, well developed and alert Orientation/consciousness: patient oriented x3 HEENT Head: Yes normal to inspection, Yes normocephalic and Yes atraumatic Eyes General: appearance normal, both eyes and all related structures Resp Effort & Inspection: normal respiratory effort and able to speak in complete sentences Cardio Rate: regular rate Peripheral pulses: Peripheral pulses 2+ throughout GI Palpation (GI): Soft to palpation Skin Lesions: no lesions Rashes: no rashes Neuro General: patient oriented x3 Extrem Other: Right hip: Normal to inspection. No pain with ROM of the hip. Pain along the greater trochanter. No pain with hip flexion or abduction. Positive tenderness along the SI joint, Positive SLR. NVI. Results Reviewed Results Reviewed: Xrays were obtained in the office today and personally reviewed by me of the right hip are negative for acute or chronic abnormalities. Assessment & Plan Assessment & Plan (1) Chronic right SI joint pain: Code(s): M53.3 - Sacrococcygeal disorders, not elsewhere classified; G89.29 - Other chronic pain Category: Medical Plan We discussed options which include PT, NSAIDs and injections. The patient will defer on the injection today and proceed with PT and NSAIDs. If symptoms persist, she will contact me for an injection, otherwise, PRN.I also referred him to our mixer operator vacuum pan salt for further evaluation. I also referred him to our mixer operator vacuum pan salt for further evaluation. Orders: Orders XR pelvis 1-2V Today Eula Martinez PA-C M25.559 - Pain in unspecified hip PT Evaluation and Treatment Today Troy Danielle PA-C G89.29 - Other chronic pain, M53.3 - Sacrococcygeal disorders, not elsewhere classified Patient Instructions: Scribed for Troy Danielle PA-C, by David Milian medical massage therapist, on 05/16/2024 at 11:00 AM EST.? I, Troy Danielle PA-C, have personally reviewed and agree with the information entered by the scribe. Coding Level of Care Code New Pt Level 3 (90205) Diagnoses Chronic right SI joint pain M53.3; G89.29
== END 2024-05-16 11:36 | disposition home or self-care (01) ==
PROVIDERS: PCP Internal Medicine; Visit Provider Physician Assistant
DX: M53.3 Sacrococcygeal disorders, not elsewhere classified (principal); G89.29 Other chronic pain
CPT/HCPCS: 99203

== ENCOUNTER → 2024-05-19 00:39 | Outpatient (BNV) | payer OTHER, SELFPAY | PROVIDERS: Visit Provider Psychiatry & Neurology Neurology | DX: G47.33 Obstructive sleep apnea (adult) (pediatric) (principal); G47.31 Primary central sleep apnea; E66.9 Obesity, unspecified | CPT/HCPCS: 95811 ==

== ENCOUNTER → 2024-05-19 22:05 | Outpatient (REF) | payer OTHER, SELFPAY | LOC: HO.SL 22:05 | PROVIDERS: Visit Provider Nurse Practitioner Family | DX: G47.33 Obstructive sleep apnea (adult) (pediatric) (principal); G47.31 Primary central sleep apnea; E66.9 Obesity, unspecified | CPT/HCPCS: 95811 ==

== ENCOUNTER → 2024-07-21 04:20 | Outpatient (BNV) | payer OTHER, SELFPAY | PROVIDERS: PCP Internal Medicine; Visit Provider Psychiatry & Neurology Neurology | DX: G47.31 Primary central sleep apnea (principal); G47.33 Obstructive sleep apnea (adult) (pediatric) | CPT/HCPCS: 95811 ==

== ENCOUNTER → 2024-07-21 20:30 | Outpatient (REF) | payer OTHER, SELFPAY | LOC: HO.SL 20:30 | PROVIDERS: PCP Internal Medicine; Visit Provider Nurse Practitioner Family | DX: G47.31 Primary central sleep apnea (principal); G47.33 Obstructive sleep apnea (adult) (pediatric) | CPT/HCPCS: 95811 ==

== ENCOUNTER 2024-08-09 08:12 | Outpatient (REF) | payer OTHER, SELFPAY | END 2024-08-09 08:13 | disposition home or self-care (01) | LOC: HO.HOSX 08:12 | PROVIDERS: Visit Provider Physician Assistant | DX: Z13.89 Encounter for screening for other disorder (principal) ==

== ENCOUNTER 2024-09-05 08:40 | Outpatient (AMB) | payer OTHER, SELFPAY ==
[2024-09-05 08:44] VITALS: BP 122/80; PULSE 81; O2SAT 97; BMI 48.3
--- NOTE | 2024-09-05 08:44 | MHC.PC.OV ---
Vital Signs 09/05/24 08:44 Height 5 ft 6 in Weight 299 lb 8 oz BMI 48.3 BP 122/80 Blood Pressure Location Lt brachial Position Sitting Pulse 81 Pulse Source Pulse Oximeter Pulse Oximetry (%) 97 Oxygen Delivery Method Room Air Intake Visit Reasons: [id number] Allergies No Known Allergies Allergy (Verified 09/05/24 08:44) Medication List - Last Reconciled 09/05/24 by Zaina Junior MD albuterol sulfate 90 mcg/actuation (Ventolin HFA) 1 inh inhalation QID PRN 30 days albuterol sulfate 90 mcg/actuation (ProAir HFA) 2 puffs inhalation Q4-6H PRN 30 days buspirone 5 mg PO BID PRN 90 days clonidine HCl 0.1 mg PO BEDTIME clotrimazole-betamethasone 1-0.05 % 1 appl topical ONCE 30 days famotidine 20 mg PO BID hydrocortisone 2.5% 1 appl topical BID PRN 30 days nystatin 1 appl topical DAILY 30 days omeprazole 20 mg PO DAILY 90 days ondansetron mg PO sertraline 50 mg PO DAILY Tobacco use date assessed: 09/05/24 Dental Screening Dental Screen Date: 09/05/24 Did you have a dental visit in the last 12 months?: Yes Did you have a dental problem in the last 6 months where you did not have access to dental care?: No Was dental information given to patient?: Patient has dentist HPI [id number] HPI Details Patient is a 49-year-old morbidly obese gentleman with a history of GERD, history of cholecystectomy, history of severe depression, history of sleep apnea on CPAP machine Patient is seeing Neurology for sleep apnea Gastroenterology for GERD Psychiatrist and therapist for depression He is taking sertraline 50 mg along with buspirone 5 mg b.i.d. and clonidine 0.5 at night through psychiatrist Famotidine b.i.d. and omeprazole through Gastroenterology Patient is complaining of feeling pain in his legs along with swelling in his ankle if he stands for too long or sit with its feet hanging I have placed a referral for him to see a vascular specialist Patient is getting no medication from this office He will return for physical exam appointment Patient is aware that he needs to lose weight. [facility] Medical History Encounter for general adult medical examination with abnormal findings Swelling of lower extremity Sleep apnea in adult Change in bowel function Snoring Witnessed apneic spells Daytime sleepiness Erythematous rash Tinea corporis Complex sleep apnea syndrome Tinea pedis of both feet Dog bite of abdomen Colon cancer screening Surgical History Hx of cholecystectomy Family History Brother Substance use disorder Brother Substance use disorder Maternal Uncle Substance use disorder Paternal Uncle Substance use disorder Social History Housing: House Alcohol intake: former Patient Tobacco Use Status: Never used Tobacco e-Cigarette/Vaping Use: Never Used Substance Use Type: Marijuana service: No Current occupational status: unemployed Current occupational exposures/hazards: No Cognitive needs: No Hearing needs: No Vision needs: Yes Questionnaire PHQ-9 Over the last 2 weeks, how often have you been bothered by any of the following problems? 1. Little interest or pleasure in doing things: several days 2. Feeling down, depressed, or hopeless: several days 3. Trouble falling or staying asleep, or sleeping too much: several days 4. Feeling tired or having little energy: several days 5. Poor appetite or overeating: several days 6. Feeling bad about yourself - or that you are a failure or have let yourself or your family down: several days 7. Trouble concentrating on things, such as reading the newspaper or watching television: several days 8. Moving or speaking so slowly that other people could have noticed. Or the opposite - being so fidgety or restless that you have been moving around a lot more than usual: not at all 9. Thoughts that you would be better off or of hurting yourself in some way: not at all Total score: 7 Depression Screening Interpretation: Negative Depression Screening Done: Yes 85227 - PHQ-9 Billing: Yes Source: Developed by Drs. Vish Hunter, Radha Crawley, Don Chavez and colleagues, with an educational tristian from [employer]. Thrive Questionnaire Date Thrive assessed: 09/05/24 I am a: Patient What is your living situation today?: I do not have a steady places to live I am temporarily staying with others Within the past 12 months, did the food you bought not last and you didn't have the money to get more?: Sometimes True Within the past 12 months, did you worry whether your food would run out before you got money to buy more?: Sometimes True Do you have trouble paying for medicines?: No Do you have trouble getting transportation to medical appointments?: No Do you have trouble paying your heating and electricity bill?: Yes Do you have trouble taking care of your child, family member or friend?: No Do you have trouble with day-to-day activities such as bathing, preparing meals, shopping, managing finances, etc.?: No Are you currently unemployed and looking for a job?: Yes Are you interested in more education?: No Currently or been in a relationship where the following occur: No concerns reported THRIVE Score: 4 AUDIT C Alcohol Use Questionnaire (AUDIT-C) 1. How often do you have a drink containing alcohol?: Monthly or less 2. How many drinks containing alcohol do you have on a typical day when you are drinking?: 1 or 2 Total Score: 1 Score Reviewed/Action Taken: Yes ALLY-7 AMB Questionnaire ALLY-7 Date ALLY - 7 assessed: 02/25/24 Source: Developed by Drs. Vish Hunter, Radha Crawley, Don Chavez and colleagues, with an educational tristian from [employer]. Review of Systems Const Denies chills and Denies fever(s) ENT Denies epistaxis and Denies nasal discharge Card Denies chest pain Resp Denies chest congestion, Denies cough and Denies hemoptysis GI Denies diarrhea and Denies nausea Skin/Breast Denies rash Neuro Reports no additional complaints Psych Reports no additional complaints Endo Reports no additional complaints Physical exam (Primary Care) Vital Signs: Last Vital Signs Pulse 81 09/05/24 08:44 BP 122/80 09/05/24 08:44 Pulse Ox 97 09/05/24 08:44 Oxygen Delivery Method Room Air 09/05/24 08:44 BMI result Body Mass Index 48.3 Tobacco/Smoking Status: Tobacco use Status Tobacco use date assessed 09/05/24 09/05/24 08:46 Patient Tobacco Use Status Never used Tobacco 09/05/24 08:46 e-Cigarette/Vaping Use Never Used 09/05/24 08:46 PHQ-9: PHQ-9 Score PHQ-9: Total score 7 09/05/24 09:04 Depression Screening Interpretation: Negative Thrive Assessment: Date of Thrive Assessment Date Thrive assessed 09/05/24 09/05/24 08:53 Currently or been in a relationship where the following occur: No concerns reported Const General: cooperative, comfortable and no acute distress Orientation/consciousness: patient oriented x3 HENMT Head: Yes normocephalic Eyes General: appearance normal, both eyes and all related structures Neck Neck: Yes supple Resp Effort & Inspection: normal respiratory effort, no cough and no stridor Cardio Rhythm: regular rhythm Heart sounds: S1 normal heart sound present and S2 normal heart sound present Skin General skin exam: turgor normal Neuro General: patient oriented x3, tone normal and moves all extremities Extrem Right lower extremity: no edema Left lower extremity: no edema Coding Level of Care Code Est Pt Level 4 (34760) Complex EM visit Add On G2211 Diagnoses Varicose veins of both legs with edema I83.893 Laterality: bilateral CARLA (obstructive sleep apnea) G47.33 Gastroesophageal reflux disease without esophagitis K21.9 Esophagitis presence: without esophagitis Anxiety, generalized F41.1 Mild episode of recurrent major depressive disorder F33.0 Active/Remission status: currently active Major depression episode severity: mild Morbid obesity due to excess calories E66.01 Assessment & Plan Assessment & Plan (1) Varicose veins of leg with swelling: Code(s): I83.899 - Varicose veins of unspecified lower extremity with other complications Category: Medical Qualifiers: Laterality: bilateral Qualified Code(s): I83.893 - Varicose veins of bilateral lower extremities with other complications (2) CARLA (obstructive sleep apnea): Comment: Severe degree of sleep apnea. The total AHI was 24/hr and oxygen frederick was 71 %. Code(s): G47.33 - Obstructive sleep apnea (adult) (pediatric) Category: Medical (3) Acid reflux: Code(s): K21.9 - Gastro-esophageal reflux disease without esophagitis Category: Medical Qualifiers: Esophagitis presence: without esophagitis Qualified Code(s): K21.9 - Gastro-esophageal reflux disease without esophagitis (4) Anxiety, generalized: Code(s): F41.1 - Generalized anxiety disorder Category: Medical (5) Major depression, recurrent: Code(s): F33.9 - Major depressive disorder, recurrent, unspecified Category: Medical Qualifiers: Active/Remission status: currently active Major depression episode severity: mild Qualified Code(s): F33.0 - Major depressive disorder, recurrent, mild (6) Morbid obesity due to excess calories: Code(s): E66.01 - Morbid (severe) obesity due to excess calories Category: Medical Plan Patient is a 49-year-old morbidly obese gentleman with a history of GERD, history of cholecystectomy, history of severe depression, history of sleep apnea on CPAP machine Patient is seeing Neurology for sleep apnea Gastroenterology for GERD Psychiatrist and therapist for depression He is taking sertraline 50 mg along with buspirone 5 mg b.i.d. and clonidine 0.5 at night through psychiatrist Famotidine b.i.d. and omeprazole through Gastroenterology Patient is complaining of feeling pain in his legs along with swelling in his ankle if he stands for too long or sit with its feet hanging I have placed a referral for him to see a vascular specialist On exam today I was not able to appreciate external varicose vein, and at this time in the morning his ankles are not swollen Patient is getting no medication from this office He will return for physical exam appointment Patient is aware that he needs to lose weight. Orders: Referrals Vascular Surgery Referral I83.899 - Varicose veins of unspecified lower extremity with other complications
== END 2024-09-05 09:18 | disposition home or self-care (01) ==
LOC: HO.HMCC 08:41
PROVIDERS: PCP Internal Medicine; Visit Provider Internal Medicine
DX: I83.893 Varicose veins of bilateral lower extremities with other complications (principal); F33.0 Major depressive disorder, recurrent, mild; E66.01 Morbid (severe) obesity due to excess calories; Z68.42 Body mass index [BMI] 45.0-49.9, adult; G47.33 Obstructive sleep apnea (adult) (pediatric); K21.9 Gastro-esophageal reflux disease without esophagitis; F41.1 Generalized anxiety disorder

== ENCOUNTER → 2024-09-05 08:40 | Outpatient (BNVA) | payer OTHER, SELFPAY | PROVIDERS: PCP Internal Medicine; Visit Provider Internal Medicine | DX: I83.893 Varicose veins of bilateral lower extremities with other complications (principal); G47.33 Obstructive sleep apnea (adult) (pediatric); K21.9 Gastro-esophageal reflux disease without esophagitis; F41.1 Generalized anxiety disorder; F33.0 Major depressive disorder, recurrent, mild; E66.01 Morbid (severe) obesity due to excess calories; Z68.42 Body mass index [BMI] 45.0-49.9, adult | CPT/HCPCS: 96127; 99212 ==

== ENCOUNTER 2024-09-06 09:45 | Outpatient (REF) | payer OTHER, SELFPAY | END 2024-09-06 09:46 | disposition home or self-care (01) | LOC: HO.HOSX 09:45 | PROVIDERS: Visit Provider Physician Assistant | DX: Z13.89 Encounter for screening for other disorder (principal) ==

== ENCOUNTER 2024-11-13 09:36 | Outpatient (REF) | payer OTHER, SELFPAY ==
--- NOTE | ~2024-11-13 | XR_ITS ---
EXAMINATION: XR KNEE 1-2 VIEWS LEFT, XR KNEE 1 VIEW RIGHT HISTORY: M25.562 - Pain in left knee COMPARISON: Comparison is made with the prior examination of the left knee dated 02/25/2024. FINDINGS: Standing AP views of both knees and an additional sunrise patellar view of the left knee are submitted. Osseous mineralization is normal. There is no fracture or dislocation. There is mild narrowing of the medial compartment of the left knee. The soft tissues are unremarkable. XR/XR knee LT 2V IMPRESSION: Mild narrowing of the medial compartment of the left knee. Electronically signed by: Vish Miranda MD 11/16/2024 02:41 PM EST
--- NOTE | ~2024-11-13 | XR_ITS ---
EXAMINATION: XR KNEE 1-2 VIEWS LEFT, XR KNEE 1 VIEW RIGHT HISTORY: M25.562 - Pain in left knee COMPARISON: Comparison is made with the prior examination of the left knee dated 02/25/2024. FINDINGS: Standing AP views of both knees and an additional sunrise patellar view of the left knee are submitted. Osseous mineralization is normal. There is no fracture or dislocation. There is mild narrowing of the medial compartment of the left knee. The soft tissues are unremarkable. XR/XR knee RT 1V IMPRESSION: Mild narrowing of the medial compartment of the left knee. Electronically signed by: Vish Miranda MD 11/16/2024 02:41 PM EST
== END 2024-11-13 09:37 | disposition home or self-care (01) ==
LOC: HO.HOSX 09:36
PROVIDERS: Visit Provider Physician Assistant
DX: M25.561 Pain in right knee (principal); M25.562 Pain in left knee; M17.12 Unilateral primary osteoarthritis, left knee
CPT/HCPCS: 73560; 99212; J1010; J2003

== ENCOUNTER 2024-11-13 14:29 | Outpatient (AMB) | payer OTHER, SELFPAY ==
--- NOTE | 2024-11-13 14:39 | MHC.OFFVIS ---
Vital Signs 11/13/24 14:44 Height 5 ft 6 in Weight 270 lb BMI 43.6 Intake Visit Reasons: New Prob-Left knee pain Intake Note: Sedrick 49 year old male who presents today as a new patient for an evaluation of left knee pain. Patient reports his pain started about 1 yr ago. States his pain is worse when he bends his knee, when twisting knee, feels like his bones are grinding together, knee gives out and swelling. At time he has tingling from time to time. Denies injection, P.T or any use of knee brace. Allergies No Known Allergies Allergy (Verified 11/13/24 14:43) Medication List - Last Reviewed 11/13/24 by BIJAL Hamilton albuterol sulfate 90 mcg/actuation (Ventolin HFA) 1 inh inhalation QID PRN 30 days albuterol sulfate 90 mcg/actuation (ProAir HFA) 2 puffs inhalation Q4-6H PRN 30 days buspirone 5 mg PO BID PRN 90 days clonidine HCl 0.1 mg PO BEDTIME clotrimazole-betamethasone 1-0.05 % 1 appl topical ONCE 30 days famotidine 20 mg PO BID hydrocortisone 2.5% 1 appl topical BID PRN 30 days nystatin 1 appl topical DAILY 30 days omeprazole 20 mg PO DAILY 90 days ondansetron mg PO sertraline 50 mg PO DAILY HPI HPI New Prob-Left knee pain: Details: 49-year-old gentleman presents to the office today for left knee pain. He states the pain has been ongoing for several months but it has been worsened over the last several weeks. He has pain with going up and down stairs. He states he feels a grinding sensation behind the anterior portion of the knee. He has had no prior treatment to date. [facility] Medical History Encounter for general adult medical examination with abnormal findings Swelling of lower extremity Sleep apnea in adult Change in bowel function Snoring Witnessed apneic spells Daytime sleepiness Erythematous rash Tinea corporis Complex sleep apnea syndrome Tinea pedis of both feet Dog bite of abdomen Colon cancer screening Surgical History Hx of cholecystectomy Family History Brother Substance use disorder Brother Substance use disorder Maternal Uncle Substance use disorder Paternal Uncle Substance use disorder Social History (Updated 11/13/24 @ 14:44 by Linda Zepeda [facility]) Housing: House Alcohol intake: former Patient Tobacco Use Status: Never used Tobacco e-Cigarette/Vaping Use: Never Used Substance Use Type: Marijuana service: No Current occupational status: unemployed 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 Current occupational exposures/hazards: No Cognitive needs: No Hearing needs: No Vision needs: Yes Review of Systems Const All systems reviewed & are unremarkable except as noted in HPI and below Physical Exam Vital Signs: BMI result Body Mass Index 43.6 Const General: cooperative and no acute distress Orientation/consciousness: patient oriented x3 Resp Effort & Inspection: normal respiratory effort and able to speak in complete sentences Cardio Peripheral pulses: Peripheral pulses 2+ throughout Neuro General: patient oriented x3 Extrem Other: Left knee skin intact, no erythema or joint effusion. Tenderness along the medial joint line. ROM full with crepitus. Negative steinmans. No ligamentous laxity. NVI. Results Reviewed Results Reviewed: X-rays of the left knee obtained in the office today show lateralization of the patella with osteophyte formation. Assessment & Plan Assessment & Plan (1) Patellofemoral arthritis of left knee: Code(s): M17.12 - Unilateral primary osteoarthritis, left knee Category: Medical Plan: We discussed options today which include physical therapy, an order was placed today. We also discussed the benefits of steroid injections which she consented for today. Patient tolerated procedure well. He was fit for a stabilized knee brace today. He will increase activities as tolerated and if symptoms persist or worsen over the next 6-8 weeks she will contact our office otherwise follow up as needed. Orders: Orders XR knee RT 1V Today M25.561 - Pain in right knee XR knee LT 2V Today M25.562 - Pain in left knee Coding Level of Care Code Est Pt Level 3 (14597) Complex EM visit Add On G2211 Diagnoses Patellofemoral arthritis of left knee M17.12
[2024-11-13 14:44] VITALS: BMI 43.6
== END 2024-11-13 14:57 | disposition home or self-care (01) ==
PROVIDERS: PCP Internal Medicine; Visit Provider Physician Assistant
DX: M17.12 Unilateral primary osteoarthritis, left knee (principal)
CPT/HCPCS: 99213; G2211

== ENCOUNTER 2024-11-14 10:59 | Outpatient (AMB) | payer OTHER, SELFPAY ==
--- NOTE | 2024-11-14 11:02 | MHC.OFFVIS ---
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 States he has had this problem for about 3 years but it has gotten worse recently. The right leg is worse. He gets leg swelling and cramps. Says he gets injections for his knee. 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 It has been affecting their daily activities including walking, standing, and physical activity. It is noted more so in right leg. He is a nonsmoker and not a diabetic. Patient denies any previous venous surgery or injections. Patient denies any history of DVT/ PE. Patient denies any history of phlebitis. Trial of compression includes - nothing at this point They now present for vascular evaluation regarding their varicose veins. [facility] Medical History Encounter for general adult medical examination with abnormal findings Swelling of lower extremity Sleep apnea in adult Change in bowel function Snoring Witnessed apneic spells Daytime sleepiness Erythematous rash Tinea corporis Complex sleep apnea syndrome Tinea pedis of both feet Dog bite of abdomen Colon cancer screening Surgical History Hx of cholecystectomy Family History Brother Substance use disorder Brother Substance use disorder Maternal Uncle Substance use disorder Paternal Uncle Substance use disorder Social History (Updated 11/13/24 @ 14:44 by BIJAL Hamilton) Housing: House Alcohol intake: former Patient Tobacco Use Status: Never used Tobacco e-Cigarette/Vaping Use: Never Used Substance Use Type: Marijuana service: No Current occupational status: unemployed 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 Current occupational exposures/hazards: No Cognitive needs: No Hearing needs: No Vision needs: Yes Review of Systems Const Reports as per HPI and Denies weakness ENT Reports Normal hearing present and Denies dizziness Card Reports as per HPI, Denies chest pain, Denies chest pain at rest, Denies chest pain with activity, Denies dyspnea and Denies dyspnea on exertion Resp Reports as per HPI, Denies cough, Denies dyspnea and Denies dyspnea on exertion GI Reports as per HPI, Denies abdominal pain, Denies nausea and Denies vomiting Musc Denies numbness Skin/Breast Reports as per HPI, Denies erythema and Denies wounds Neuro Reports Normal hearing present, Denies dizziness, Denies numbness, Denies Sensory deficit (Neuro) and Denies weakness Psych Reports no additional complaints Endo Reports no additional complaints Physical Exam Const General: healthy appearing and no acute distress Orientation/consciousness: patient oriented x3 HEENT Head: Yes normal to inspection Ears: hearing grossly normal bilaterally Mouth: Normal oral and palatal mucosa present Resp Effort & Inspection: normal respiratory effort and able to speak in complete sentences Auscultation: clear to auscultation bilaterally Cardio Jugular venous distension: no JVD Rate: regular rate Rhythm: regular rhythm Heart sounds: S1 normal heart sound present and S2 normal heart sound present Bruits: no abdominal aortic bruits, no carotid bruits, no femoral bruits and no renal bruits Peripheral pulses: Peripheral pulses 2+ throughout GI Inspection: Yes normal to inspection Palpation (GI): No Abdominal aortic bruit present Skin General skin exam: no rashes or lesions noted Wounds: no wounds Hair: normal Neuro General: patient oriented x3 Cranial nerves: Yes Normal hearing present Cognition (Neuro): normal cognition Gait exam (Neuro): Normal gait present Motor exam (neuro): 5/5 motor strength present throughout Sensory Exam: No Sensory deficit (Neuro) Extrem Other: Bilateral lower extremities: 1+ peripheral edema noted. Palpable DP pulses. Discoloration noted from the mid cassidy down to the feet, circumferentially. Multiple areas of spider veins noted bilaterally. Right lower extremity: Rope-like tortuosity noted in the upper medial thigh area. CEAP: C - 4 E - primary A - superficial P - reflux General: Yes normal to inspection, Yes full ROM, Yes capillary refill normal and Yes normal gait Assessment & Plan Assessment & Plan (1) Varicose veins of both lower extremities with inflammation: Code(s): I83.11 - Varicose veins of right lower extremity with inflammation; I83.12 - Varicose veins of left lower extremity with inflammation Category: Medical Plan: Ivan is presenting today as a referral from his PCP for ongoing swelling, pain, cramping, and fatigue of the bilateral lower extremities. States this has been going on for several years now, worsening. He is currently being treated for arthritis in his knees. In short, the patient has evidence of venous insufficiency. I have discussed the pathophysiology with the patient. In addition I have provided informational material regarding venous disease to the patient. We have discussed conservative measures including compression, elevation, and exercise. We are able to provide him with 3 pairs of compression stockings. I have taken the liberty of ordering venous insufficiency testing with the patient. They will follow up with me after testing. The patient had an opportunity to ask questions regarding the treatment plan. All questions were answered. Imaging studies, laboratory studies and physical exam results were discussed and reviewed in detail. No major barriers to understanding were identified. The patient expressed understanding and agreement with the above treatment plan. The patient is aware they should contact our office by phone for worsening of the current condition or the appearance of new symptoms. Thank you for allowing me to participate in the vascular care of this patient. If you have any questions or concerns regarding the treatment for the above condition please do not hesitate to contact me. The office telephone contact is [phone]. This note is constructed using voice recognition software. While every effort has been made to ensure accuracy, shank piece tacker errors may have been included. Thank you for allowing me to participate in the care of your patient. Yours sincerely, LAYLA Baptiste Orders: Orders US venous duplex LE BI 1 Week I83.11 - Varicose veins of right lower extremity with inflammation, I83.12 - Varicose veins of left lower extremity with inflammation Coding Level of Care Code New Pt Level 4 (47553) Diagnoses Varicose veins of both lower extremities with inflammation I83.11; I83.12
== END 2024-11-14 11:26 | disposition home or self-care (01) ==
PROVIDERS: PCP Internal Medicine; Visit Provider Physician Assistant Surgical
DX: I83.11 Varicose veins of right lower extremity with inflammation (principal); I83.12 Varicose veins of left lower extremity with inflammation
CPT/HCPCS: 99204

== ENCOUNTER → 2024-11-14 10:59 | Outpatient (BNVA) | payer OTHER, SELFPAY | PROVIDERS: PCP Internal Medicine; Visit Provider Physician Assistant Surgical | DX: I83.12 Varicose veins of left lower extremity with inflammation (principal); I83.11 Varicose veins of right lower extremity with inflammation | CPT/HCPCS: 99202 ==

== ENCOUNTER 2024-11-28 08:28 | Outpatient (REF) | payer OTHER, SELFPAY ==
--- NOTE | ~2024-11-28 | US_ITS ---
EXAMINATION: US LOWER EXTREMITY VENOUS (REFLUX EXAM), BILATERAL CLINICAL INFORMATION: Varices COMPARISON: None. TECHNIQUE: Color flow triplex imaging and compression Doppler was performed to evaluate both the deep and the superficial systems bilaterally. To evaluate the superficial system, the examination was performed in the upright position. Color-flow Doppler ultrasound and compression ultrasound were utilized. In addition, maneuvers were utilized to demonstrate reflux. FINDINGS: 1. DEEP VENOUS ULTRASOUND OF THE RIGHT LOWER EXTREMITY: Common Femoral Vein: Compressible, normal respiratory variation and augmented flow. Femoral Vein: Compressible, normal color flow and augmentation. Popliteal Vein: Compressible, normal augmentation. Deep Reflux: There is no evidence of reflux in the deep system in either the common femoral vein, superficial femoral or the popliteal vein. There is no evidence of a Vaughan's cyst. 2. SUPERFICIAL ULTRASOUND WITH DOPPLER OF RIGHT LOWER EXTREMITY: GREAT SAPHENOUS VEIN: Saphenofemoral Junction: 0.9 cm; Reflux: 0 ms Proximal Thigh: 0.5 cm; Reflux: 0 ms Mid Thigh: 0.2 cm; Reflux: 0 ms Distal Thigh: 0.3 cm; Reflux: 0 ms At Knee: 0.3 cm; Reflux: 0 ms Proximal Calf: 0.3 cm; Reflux: 0 ms Mid Calf: 0.3 cm; Reflux: 0 ms Distal Calf: 0.2 cm; Reflux: 0 ms DUPLICATED MEDIAL GREAT SAPHENOUS VEIN: Diameter: None imaged Reflux: NA DUPLICATED LATERAL GREAT SAPHENOUS VEIN: Diameter: None imaged Reflux: NA SMALL SAPHENOUS VEIN: Saphenopopliteal Junction: 0.2 cm; Reflux: 0 ms Proximal: 0.2 cm; Reflux: 0 ms Distal: 0.2 cm; Reflux: 0 ms VEIN OF GIACOMINI: Size: NA Reflux: NA PERFORATORS: Location: Proximal thigh, mid calf. Size: 0.2 and 0.2 cm. Reflux: NA VARICOSITIES: Location: Small saphenous vein, distally and through the thigh. And proximal to mid calf. Size: Range between 0.3 and 0.7 cm. Reflux: 1892 ms reflux in the proximal thigh, more than 2620 ms in the distal thigh and more than 2784 ms at the knee. 3. DEEP VENOUS ULTRASOUND OF THE LEFT LOWER EXTREMITY: Common Femoral Vein: Compressible, normal respiratory variation and augmented flow. Femoral Vein: Compressible, normal color flow and augmentation. Popliteal Vein: Compressible, normal augmentation. Deep Reflux: There is no evidence of reflux in the deep system in either the common femoral vein, superficial femoral or the popliteal vein. There is no evidence of a Vaughan's cyst. 4. SUPERFICIAL ULTRASOUND WITH DOPPLER OF LEFT LOWER EXTREMITY: GREAT SAPHENOUS VEIN: Saphenofemoral Junction: 0.8 cm; Reflux: 0 ms Proximal Thigh: 0.5 cm; Reflux: 0 ms Mid Thigh: 0.2 cm; Reflux: 2276 ms Distal Thigh: 0.2 cm; Reflux: 944 ms At Knee: 0.2 cm; Reflux: 0 ms Proximal Calf: 0.1 cm; Reflux: 0 ms Mid Calf: 0.2 cm; Reflux: 0 ms Distal Calf: 0.2 cm; Reflux: 0 ms DUPLICATED MEDIAL GREAT SAPHENOUS VEIN: Diameter: None imaged Reflux: NA DUPLICATED LATERAL GREAT SAPHENOUS VEIN: Diameter: 0.2 cm. Reflux: NA SMALL SAPHENOUS VEIN: Saphenopopliteal Junction: 0.3 cm; Reflux: 0 ms Proximal: 0.1 cm; Reflux: 0 ms Distal: 0.1 cm; Reflux: 0 ms VEIN OF GIACOMINI: Size: NA Reflux: NA PERFORATORS: Location: Mid calf Size: 0.2 cm. Reflux: NA VARICOSITIES: Location: Proximal thigh and midcalf. Size: 0.7 and 0.3 cm respectively. Reflux: More than 2940 ms in the mid calf. US/US venous insuf bilat IMPRESSION: Right: Varices with the reflux/insufficiency throughout the thigh and at the knee. Left: Venous insufficiency, great saphenous vein in the mid thigh to above the knee. Varices in the mid calf with reflux. Electronically signed by: Tyrese Parra MD 11/28/2024 02:03 PM J[facility]
--- OUTSIDE RECORDS SUMMARY | 2024-11-28 08:49 | XMS_ITS | Clinical Summary ---
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 Name Role Phone Unavailable Primary Care Provider Unavailabl e Social History Tobacco Use Types Packs/Day Years Used Date Smoking Tobacco: Never Assessed Sex and Gender Information Value Date Recorded Sex Assigned at Not on file Gender Identity Not on file Sexual Orientation Not on file Plan of Treatment Health Maintenance Due Date Last Done Comments Hepatitis B Vaccines (1 of 3 - 19+ 3-dose series) 1995 Cholesterol Screening (Lipid Panel) 10/04/2022 Colorectal Cancer Screening: Colonoscopy 10/04/2022 Depression Screening 10/04/2022 HIV Screening 10/04/2022 Hepatitis C Screening 10/04/2022 Social Influencers of Health Screening 10/04/2022 COVID-19 Vaccine ( - 2023-2 5 season) 2024 Influenza Vaccine (#1) 2024 DTaP,Tdap,and Td Vaccines (2 - Td or Tdap) 10/13/2033 10/13/2023 HIB Vaccines Aged Out No longer eligi ble based on patient's age to complete this topic HPV Vaccines Aged Out No longer eligi ble based on patient's age to complete this topic Hepatitis A Vaccines Aged Out No long er eligible based on patient's age to complete this topic IPV Vaccines Aged Out No longer eligi ble based on patient's age to complete this topic MMR Vaccines Aged Out No longer eligi ble based on patient's age to complete this topic Meningococcal ACWY Vaccine Aged Out N o longer eligible based on patient's age to complete this topic Pneumococcal Vaccine: Pediat rics (0 to 5 Years) and At-Risk Patients (6 to 64 Years) Aged Out No longer eligi ble based on patient's age to complete this topic RSV Immunization Patients Un pedro 20 months Aged Out No longer eligible b ased on patient's age to complete this topic Varicella Vaccines Aged Out No longer eligible based on patient's age to complete this topic
== END 2024-11-28 08:29 | disposition home or self-care (01) ==
LOC: HO.US 08:28
PROVIDERS: PCP Internal Medicine; Visit Provider Physician Assistant Surgical
DX: I83.11 Varicose veins of right lower extremity with inflammation (principal); I83.12 Varicose veins of left lower extremity with inflammation
CPT/HCPCS: 93970

== ENCOUNTER → 2024-11-28 08:30 | Outpatient (BNV) | payer OTHER, SELFPAY | PROVIDERS: PCP Internal Medicine; Visit Provider Radiology Diagnostic Radiology | DX: I83.93 Asymptomatic varicose veins of bilateral lower extremities (principal) | CPT/HCPCS: 93970 ==

== ENCOUNTER 2024-12-21 09:17 | Outpatient (AMB) | payer OTHER, SELFPAY ==
--- NOTE | 2024-12-21 09:22 | A.OFFVIS_ITS ---
Intake Visit Reasons: follow up 11/28/24 Intake Note: Patient presents for follow up . States he has pain , same as before . Accompanied by: Self / Same As Patient Allergies No Known Allergies Allergy (Verified 12/21/24 09:23) [facility] HPI follow up 11/28/24: Details: Very pleasant 49-year-old gentleman presents for follow-up regarding venous di sease. He has had rather large right lower extremity varicosities in particular in the thigh. They have been source of discomfort for him. It is on occasion even phlebitic. He now presents for follow-up with venous insufficiency testing. Of note he has used compression with minimal relief. [facility] Medical History Encounter for general adult medical examination with abnormal findings Swelling of lower extremity Sleep apnea in adult Change in bowel function Snoring Witnessed apneic spells Daytime sleepiness Erythematous rash Tinea corporis Complex sleep apnea syndrome Tinea pedis of both feet Dog bite of abdomen Colon cancer screening Surgical History Hx of cholecystectomy Family History Brother Substance use disorder Brother Substance use disorder Maternal Uncle Substance use disorder Paternal Uncle Substance use disorder Social History Housing: House Alcohol intake: former Patient Tobacco Use Status: Never used Tobacco e-Cigarette/Vaping Use: Never Used Substance Use Type: Marijuana service: No Current occupational status: unemployed 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 Current occupational exposures/hazards: No Cognitive needs: No Hearing needs: No Vision needs: Yes Review of Systems Const All systems reviewed & are unremarkable except as noted in HPI and below Reports no additional complaints ENT Reports Normal hearing present Card Denies chest pain, Denies chest pain at rest, Denies chest pain with activity and Denies pedal edema Resp Denies cough GI Denies abdominal pain Musc Details: pain over varicosities, aching of lower extremities, swelling, cramping, heaviness and tiredness, itching Denies abnormal gait, Denies muscle cramps and Denies radiating pain into limb Skin/Breast Denies skin ulcer and Denies wounds Neuro Reports Normal hearing present and Denies abnormal gait Psych Reports no additional complaints Physical Exam Const General: cooperative, healthy appearing and comfortable Orientation/consciousness: oriented to person, oriented to place and oriented to time HEENT Head: Yes normal to inspection Neck Neck: Yes normal visual inspection Carotids: no bruits Chest Chest palpation & inspection: normal inspection of the chest Resp Effort & Inspection: normal respiratory effort and able to speak in complete sentences Auscultation: clear to auscultation bilaterally, no crackles, no rales, no rhonchi and no wheezes Cardio Rate: regular rate Rhythm: regular rhythm Heart sounds: S1 normal heart sound present and S2 normal heart sound present Bruits: no carotid bruits Peripheral pulses: Peripheral pulses 2+ throughout GI Inspection: Yes normal to inspection Skin Other: +2 edema, large rope-like varicosities greater than 4 mm right medial thigh CEAP Classification C4 - skin color changes Ep - Etiology Primary As - superficial veins P - reflux General skin exam: dry skin Wounds: no wounds Hair: normal Neuro General: oriented to person, oriented to place and oriented to time Cranial nerves: Yes CN's II-XII intact bilaterally and Yes Normal hearing present Cognition (Neuro): normal cognition Motor exam (neuro): 5/5 motor strength present throughout Extrem Other: venous exam: +2 edema General: No clubbing, No cyanosis and Yes edema Right lower extremity: full ROM, normal capillary refill and edema Left lower extremity: full ROM, normal capillary refill and edema Psych Appearance: grossly normal Mental Status: mental status grossly normal Speech and movement: Normal speech and movement present Results Reviewed Results Reviewed: Brief summary of venous insufficiency testing is as follows: right great saphenous vein: negative right small saphenous vein: negative right accessory vein: none present left great saphenous vein: Minimally positive at thigh but small in caliber left small saphenous vein: negative left accessory vein: none present Please note there is no evidence of any venous aneurysms or significant tortuosity Assessment & Plan Assessment & Plan (1) Varicose veins of right lower extremity with inflammation: Code(s): I83.11 - Varicose veins of right lower extremity with inflammation Category: Medical Plan: This patient has varicose veins with inflammation. They continue to be a source of discomfort for the patient. The patient has tried conservative treatment with compression, leg elevation and exercise program for over 3 months time. They have been compliant with all treatment. This has provided minimal relief for the patient. I do not anticipate this course of treatment will alter the underlying etiology. The patient has been scheduled for lower extremity venous treatment inclusive of --- right leg microphlebectomy. Risks, benefits, and complications of this procedure has been discussed in detail with the patient including but not limited to bleeding, infection, and the development of a DVT. The patient has demonstrated a clear understanding and has consented. We will schedule the patient as soon as possible. Thank you for allowing us to participate in this patient's care. If there are any questions or concerns please do not hesitate to contact us. Coding Level of Care Code Est Pt Level 4 (16742) Diagnoses Varicose veins of right lower extremity with inflammation I83.11
--- OUTSIDE RECORDS SUMMARY | 2024-12-21 09:59 | XMS_ITS | Clinical Summary ---
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
== END 2024-12-21 09:34 | disposition home or self-care (01) ==
PROVIDERS: PCP Internal Medicine; Visit Provider Surgery Vascular Surgery
DX: I83.11 Varicose veins of right lower extremity with inflammation (principal)
CPT/HCPCS: 99214

== ENCOUNTER → 2024-12-21 09:17 | Outpatient (BNVA) | payer OTHER, SELFPAY | PROVIDERS: PCP Internal Medicine; Visit Provider Surgery Vascular Surgery | DX: I83.11 Varicose veins of right lower extremity with inflammation (principal) | CPT/HCPCS: 99212 ==

== ENCOUNTER 2025-03-14 11:35 | Outpatient (AMB) | payer OTHER, SELFPAY ==
--- NOTE | 2025-03-14 11:48 | MHC.PC.OV ---
Vital Signs 03/14/25 11:49 Height 5 ft 6 in Weight 296 lb 8 oz BMI 47.9 BP 122/80 Blood Pressure Location Rt brachial Position Sitting Pulse 93 Pulse Source Pulse Oximeter Pulse Oximetry (%) 96 Oxygen Delivery Method Room Air Intake Visit Reasons: Pain leg Allergies No Known Allergies Allergy (Verified 03/14/25 11:50) Medication List - Last Reconciled 03/14/25 by Zaina Junior MD albuterol sulfate 90 mcg/actuation (ProAir HFA) 2 puffs inhalation Q4-6H PRN 30 days albuterol sulfate 90 mcg/actuation (Ventolin HFA) 1 inh inhalation QID PRN 30 days buspirone 5 mg PO BID PRN 90 days clonidine HCl 0.1 mg PO BEDTIME clotrimazole-betamethasone 1-0.05 % 1 appl topical ONCE 30 days famotidine 20 mg PO BID hydrocortisone 2.5% 1 appl topical BID PRN 30 days nystatin 1 appl topical DAILY 30 days omeprazole 20 mg PO DAILY 90 days ondansetron mg PO sertraline 50 mg PO DAILY Tobacco use date assessed: 03/14/25 Dental Screening Dental Screen Date: 03/14/25 Did you have a dental visit in the last 12 months?: Yes Did you have a dental problem in the last 6 months where you did not have access to dental care?: No Was dental information given to patient?: Patient has dentist HPI Pain leg HPI Details History - The patient is a 49-year-old male presenting with leg pain and swelling. - Reports experiencing pain primarily in the right leg, exacerbated by prolonged standing and working conditions. - Has been experiencing chronic lower limb edema and swelling due to vascular issues, notably venous insufficiency with varicosities. 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 - Chronic pain and swelling have persisted, necessitating potential surgical intervention to remove problematic veins, although surgery is postponed due to current job commitments. - History of gastroesophageal reflux disease managed with omeprazole and famotidine. - Anxiety disorder treated with buspirone and sertraline. - Chronic stasis dermatitis noted in the lower extremities. Problem List - Chronic Venous Insufficiency with Varicosities - Morbid Obesity - Gastroesophageal Reflux Disease (GERD) - Anxiety Disorder - Stasis Dermatitis of Lower Extremities - Chronic Lower Limb Edema Patient Instructions - Begin taking the prescribed water pill in the morning to manage leg swelling. - Bring a comprehensive list of current medications to the next appointment. - Schedule a blood test to monitor kidney and liver function. - Return for a blood test before 3:30 PM on a day when transportation is available. - Consider resting more frequently and reducing physical strain when possible. Review of Systems - General: No fever no chills - Neurological: No headaches no dizziness - Ear nose throat: No sore throat no hearing difficulty no ear pain - Cardiovascular: No syncope, no chest pain, no palpitations - Gastrointestinal: No nausea vomiting or diarrhea - Endocrine: No polyuria polydipsia no heat intolerance - Genitourinary: No dysuria , no blood in urine Physical Exam General: Morbidly obese, BMI 47.9, no acute distress HEENT: No acute findings Neck: Supple Respiratory system: Able to talk in full sentences, no audible wheeze Cardiovascular: S1-S2 regular in rate and rhythm Gastrointestinal: No pain Extremities: Chronic stasis dermatitis both lower extremities, varicosity in both legs, swelling present GOLD MINER: Alert awake oriented x3 motor sensory intact Skin: Normal turgor [facility] Medical History Encounter for general adult medical examination with abnormal findings Swelling of lower extremity Sleep apnea in adult Change in bowel function Snoring Witnessed apneic spells Daytime sleepiness Erythematous rash Tinea corporis Complex sleep apnea syndrome Tinea pedis of both feet Dog bite of abdomen Colon cancer screening Surgical History Hx of cholecystectomy Family History Brother Substance use disorder Brother Substance use disorder Maternal Uncle Substance use disorder Paternal Uncle Substance use disorder Social History Housing: House Alcohol intake: former Patient Tobacco Use Status: Never used Tobacco e-Cigarette/Vaping Use: Never Used Substance Use Type: Marijuana service: No Current occupational status: unemployed 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 1. Little interest or pleasure in doing things: several days 2. Feeling down, depressed, or hopeless: several days 3. Trouble falling or staying asleep, or sleeping too much: several days 4. Feeling tired or having little energy: several days 5. Poor appetite or overeating: several days 6. Feeling bad about yourself - or that you are a failure or have let yourself or your family down: not at all 7. Trouble concentrating on things, such as reading the newspaper or watching television: not at all 8. Moving or speaking so slowly that other people could have noticed. Or the opposite - being so fidgety or restless that you have been moving around a lot more than usual: several days 9. Thoughts that you would be better off or of hurting yourself in some way: not at all Total score: 6 Depression Screening Interpretation: Negative Depression Screening Done: Yes 89294 - PHQ-9 Billing: Yes Source: Developed by Drs. Vish Hunter, Radha Crawley, Don Chavez and colleagues, with an educational tristian from [employer]formerly [employer] Thrive Questionnaire Date Thrive assessed: 03/14/25 I am a: Patient What is your living situation today?: I do not have a steady places to live I am temporarily staying with others Within the past 12 months, did the food you bought not last and you didn't have the money to get more?: Never true Within the past 12 months, did you worry whether your food would run out before you got money to buy more?: Sometimes True Do you have trouble paying for medicines?: No Do you have trouble getting transportation to medical appointments?: No Do you have trouble paying your heating and electricity bill?: No Do you have trouble taking care of your child, family member or friend?: No Do you have trouble with day-to-day activities such as bathing, preparing meals, shopping, managing finances, etc.?: No Are you currently unemployed and looking for a job?: No Are you interested in more education?: No Please select the resources that you would like help with: Housing/Care Home Currently or been in a relationship where the following occur: No concerns reported THRIVE Score: 2 AUDIT C Alcohol Use Questionnaire (AUDIT-C) 1. How often do you have a drink containing alcohol?: Monthly or less 2. How many drinks containing alcohol do you have on a typical day when you are drinking?: 1 or 2 3. How often do you have six or more drinks on one occasion?: Never Total Score: 1 Score Reviewed/Action Taken: Yes ALLY-7 AMB Questionnaire ALLY-7 Date ALLY - 7 assessed: 03/14/25 Feeling nervous, anxious, or on edge: 0 = Not at all Not being able to stop or control worryin = Not at all Worrying too much about different things: 0 = Not at all Trouble relaxin = Not at all Being so restless that it is hard to sit still: 0 = Not at all Becoming easily annoyed or irritable: 0 = Not at all Feeling afraid as if something awful might happen: 0 = Not at all Total ALLY-7 score (0-4 normal; 5-9 mild; 10-14 moderate; 15-21 severe): 0 Source: Developed by Drs. Vish Hunter, Radha Crawley, Don Chavez and colleagues, with an educational tristian from [employer] ALLY-7 Assessment Billing ALLY-7 Assessment Tool: LALY-7 Assessment 03258 Physical exam (Primary Care) Vital Signs: Last Vital Signs Pulse 93 03/14/25 11:49 BP 122/80 03/14/25 11:49 Pulse Ox 96 03/14/25 11:49 Oxygen Delivery Method Room Air 03/14/25 11:49 BMI result Body Mass Index 47.9 Tobacco/Smoking Status: Tobacco use Status Tobacco use date assessed 03/14/25 03/14/25 11:51 Patient Tobacco Use Status Never used Tobacco 03/14/25 11:51 e-Cigarette/Vaping Use Never Used 03/14/25 11:51 PHQ-9: PHQ-9 Score PHQ-9: Total score 6 03/14/25 12:07 Depression Screening Interpretation: Negative Thrive Assessment: Date of Thrive Assessment Date Thrive assessed 03/14/25 03/14/25 11:51 Currently or been in a relationship where the following occur: No concerns reported Coding Level of Care Code Est Pt Level 4 (48977) Complex EM visit Add On G2211 Diagnoses Edema of both lower extremities R60.0 Varicose veins of both lower extremities with inflammation I83.11; I83.12 Morbid obesity due to excess calories E66.01 Mild episode of recurrent major depressive disorder F33.0 Active/Remission status: currently active Major depression episode severity: mild Anxiety, generalized F41.1 Additional Codes ALLY-7 Assessment Billing - ALLY-7 Assessment Tool: ALLY-7 Assessment 64127 ([id number]) PHQ-9 - 91574 - PHQ-9 Billing: Yes ([id number]) Assessment & Plan Assessment & Plan (1) Edema of both lower extremities: Code(s): R60.0 - Localized edema Category: Medical (2) Varicose veins of both lower extremities with inflammation: Code(s): I83.11 - Varicose veins of right lower extremity with inflammation; I83.12 - Varicose veins of left lower extremity with inflammation Category: Medical (3) Morbid obesity due to excess calories: Code(s): E66.01 - Morbid (severe) obesity due to excess calories Category: Medical (4) Major depression, recurrent: Code(s): F33.9 - Major depressive disorder, recurrent, unspecified Category: Medical Qualifiers: Active/Remission status: currently active Major depression episode severity: mild Qualified Code(s): F33.0 - Major depressive disorder, recurrent, mild (5) Anxiety, generalized: Code(s): F41.1 - Generalized anxiety disorder Category: Medical Plan History - The patient is a 49-year-old male presenting with leg pain and swelling. - Reports experiencing pain primarily in the right leg, exacerbated by prolonged standing and working conditions. - Has been experiencing chronic lower limb edema and swelling due to vascular issues, notably venous insufficiency with varicosities. 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 - Chronic pain and swelling have persisted, necessitating potential surgical intervention to remove problematic veins, although surgery is postponed due to current job commitments. - History of gastroesophageal reflux disease managed with omeprazole and famotidine. - Anxiety disorder treated with buspirone and sertraline. - Chronic stasis dermatitis noted in the lower extremities. Problem List - Chronic Venous Insufficiency with Varicosities - Morbid Obesity - Gastroesophageal Reflux Disease (GERD) - Anxiety Disorder - Stasis Dermatitis of Lower Extremities - Chronic Lower Limb Edema Patient Instructions - Begin taking the prescribed water pill in the morning to manage leg swelling. - Bring a comprehensive list of current medications to the next appointment. - Schedule a blood test to monitor kidney and liver function. - Return for a blood test before 3:30 PM on a day when transportation is available. - Consider resting more frequently and reducing physical strain when possible. Orders: Orders Comprehensive Met. Panel Today E66.01 - Morbid (severe) obesity due to excess calories, F33.0 - Major depressive disorder, recurrent, mild, F41.1 - Generalized anxiety disorder, I83.11 - Varicose veins of right lower extremity with inflammation, I83.12 - Varicose veins of left lower extremity with inflammation TSH reflex Free T4 Today E66.01 - Morbid (severe) obesity due to excess calories, F33.0 - Major depressive disorder, recurrent, mild, F41.1 - Generalized anxiety disorder, I83.11 - Varicose veins of right lower extremity with inflammation, I83.12 - Varicose veins of left lower extremity with inflammation Complete Blood Count Auto Diff Today E66.01 - Morbid (severe) obesity due to excess calories, F33.0 - Major depressive disorder, recurrent, mild, F41.1 - Generalized anxiety disorder, I83.11 - Varicose veins of right lower extremity with inflammation, I83.12 - Varicose veins of left lower extremity with inflammation LDL Cholesterol Direct Today E66.01 - Morbid (severe) obesity due to excess calories, F33.0 - Major depressive disorder, recurrent, mild, F41.1 - Generalized anxiety disorder, I83.11 - Varicose veins of right lower extremity with inflammation, I83.12 - Varicose veins of left lower extremity with inflammation Medications: New furosemide (Lasix) 20 mg PO QAM 30 tabs 0RF
[2025-03-14 11:49] VITALS: BP 122/80; PULSE 93; O2SAT 96; BMI 47.9
--- OUTSIDE RECORDS SUMMARY | 2025-03-14 12:30 | XMS_ITS | Clinical Summary ---
Author Organization [facility] it Address [address] [place] [address] Care Team Providers Care Core Winder Name Role Phone Unavailable Primary Care Provider [...] Influencers of Health Screening 10/04/2022 COVID-19 Vaccine (2023-2 5 season) 2024 Influenza Vaccine (Season Ended) 2025 DTaP,Tdap,and Td Vaccines (2 - Td or [...] age to complete this topic Meningococcal B Vaccine Aged Out No l onger eligible based on patient's age to complete [...]
== END 2025-03-14 12:15 | disposition home or self-care (01) ==
LOC: HO.HMCC 11:36
PROVIDERS: PCP Internal Medicine; Visit Provider Internal Medicine
DX: R60.0 Localized edema (principal); I83.11 Varicose veins of right lower extremity with inflammation; E66.01 Morbid (severe) obesity due to excess calories; Z68.42 Body mass index [BMI] 45.0-49.9, adult; I83.12 Varicose veins of left lower extremity with inflammation; F33.0 Major depressive disorder, recurrent, mild; F41.1 Generalized anxiety disorder

== ENCOUNTER → 2025-03-14 11:35 | Outpatient (BNVA) | payer OTHER, SELFPAY | PROVIDERS: PCP Internal Medicine; Visit Provider Internal Medicine | DX: R60.0 Localized edema (principal); I83.11 Varicose veins of right lower extremity with inflammation; I83.12 Varicose veins of left lower extremity with inflammation; E66.01 Morbid (severe) obesity due to excess calories; F33.0 Major depressive disorder, recurrent, mild; F41.1 Generalized anxiety disorder; Z68.42 Body mass index [BMI] 45.0-49.9, adult | CPT/HCPCS: 96127; 99212 ==

== ENCOUNTER 2025-06-02 14:16 | Outpatient (AMB) | payer OTHER, SELFPAY ==
--- OUTSIDE RECORDS SUMMARY | 2025-05-28 13:40 | XMS_ITS | Encounter Summary ---
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 Name Role Phone Physician, No Pcp Primary Care Provider Unavaila ble Reason for Visit * Reason Comments Lower Extremity Issue RIGHT LOWER LEG SW ELLING FOR MONTHS Encounter Details Date Type Department Care Team (Late st Contact Info) Description 05/28/2025 1:40 PM EDT - 05/28/2025 1:50 PM EDT Emergency [facility] Emergency [address] [place] [id number] Richard Medrano MD [address] [facility] [address] [place] [id number] Acute leg pain, right (Primary Dx); Cellulitis of right lower leg Discharge Disposition: Home or Self Care Social History Tobacco Use Types Packs/Day Years Used Date Smoking Tobacco: Never Assessed Sex and Gender Information Value Date Recorded Sex Assigned at Not on file Legal Sex Male 8:28 AM EST Gender Identity Not on file Sexual Orientation Not on file documented as of this encounter Last Filed Vital Signs Vital Sign Reading Time Taken Comments Blood Pressure 123/84 05/28/2025 11:47 AM EDT Pulse 66 05/28/2025 11:47 AM EDT Temperature 36.4 C (97.6 F) 05/28/2025 11:47 AM EDT Respiratory Rate 20 05/28/2025 11:47 AM EDT Oxygen Saturation 98% 05/28/2025 11:47 AM EDT Inhaled Oxygen Concentration - - Weight 134 kg (295 lb 12.8 oz) 05/28/2025 11:47 AM EDT Height 167.6 cm (5' 6 ) 05/28/2025 11:47 AM EDT Body Mass Index 47.74 05/28/2025 11:47 AM EDT documented in this encounter Discharge Instructions * Discharge Instructions* Richard Medrano MD - 05/28/2025 1:32 PM EDT Start taking antibiotics as prescribed for your infection and start taking probiotics to prevent complications of antibiotic use such as diarrhea or fungal infections. Stay well-hydrated and get plenty of rest. If not allergic or contraindicated, take naproxen and Tylenol as needed for pain. Follow-up with your doctor and return for new symptoms worsening symptoms or concerns * Attachments The following attachments cannot be sent through Care Everywhere. * Cellulitis (Japanese) documented in this encounter Medications at Time of Discharge cephalexin (KEFLEX) 500 mg capsule Take 1 capsule (500 mg total) by mouth 4 (four) times a day for 10 days. 40 each 05/28/2025 06/07/2025 Lactobacillus acidophilus 100 mg (1 billion cell) capsule Take 1 capsule by mouth 2 (two) times a day. 60 each 05/28/2025 06/27/2025 sulfamethoxazole- trimethoprim (Bactrim DS) 800-160 mg per tablet Take 1 tablet by mouth 2 (two) times a day for 7 days. 14 each 05/28/2025 06/04/2025 documented as of this encounter Ordered Prescriptions Prescription Sig Dispense Quantity Refills Last Filled Start Date End Date sulfamethoxazole-t rimethoprim (Bactrim DS) 800-160 mg per tablet Take 1 tablet by mouth 2 (two) times a day for 7 days. 14 each 05/28/2025 Lactobacillus acidophilus 100 mg (1 billion cell) capsule Take 1 capsule by mouth 2 (two) times a day. 60 each 05/28/2025 cephalexin (KEFLEX) 500 mg capsule Take 1 capsule (500 mg total) by mouth 4 (four) times a day for 10 days. 40 each 05/28/2025 documented in this encounter Discharge Disposition Disposition Code Departure Means Destination Comment s Home or Self Care documented in this encounter Progress Notes * Mirela Tijerina RN - 05/28/2025 11:46 AM EDT Patient states bilateral lower extremity swelling for months. States saw pcp who put him on water and states had relief for a while but now swelling back. Denies any other complaints. documented in this encounter Plan of Treatment Not on file documented as of this encounter Procedures Procedure Name Priority Date/Time Associated Diagnosis Comments VAS US DUPLEX LOWER EXT VENOUS RIGHT STAT 05/28/2025 12:58 PM EDT Acute leg pain, right CBC WITH AUTO DIFFERENTIAL STAT 05/28/2025 12:27 PM EDT CBC AND DIFFERENTIAL STAT 05/28/2025 12:27 PM EDT B-TYPE NATRIURETIC PEPTIDE STAT 05/28/2025 12:27 PM EDT BASIC METABOLIC PANEL STAT 05/28/2025 12:27 PM EDT documented in this encounter Results * Vascular US duplex lower extremity venous right (05/28/2025 12:58 PM EDT) Anatomical Region Laterality Modality Vascular, Abdomen Ultrasound 05/28/2025 1:08 PM EDT Impressions 05/28/2025 1:09 PM EDT Impression: No evidence of deep vein thrombosis in the right femoral-popliteal venous segment. Telebenito RICH ([id number]) -------- FINAL REPORT -------- Dictated By: Kathy Cardona Dictated Date: 05/28/2025 13:08 ET Assigned Physician: Kathy Cardona Reviewed and Electronically Signed By: Kathy Cardona Signed Date: 05/28/2025 13:09 ET Workstation ID: [id number] Transcribed By: Self Edit Transcribed Date: 05/28/2025 13:08 ET Narrative 05/28/2025 1:09 PM EDT History: Right lower extremity swelling. Findings: Duplex and color Doppler imaging of the deep venous system of the right lower extremity was performed from the inguinal ligament to the popliteal fossa. The common femoral, femoral and popliteal veins are patent and compress completely. Normal spontaneous and phasic venous flow is demonstrated with Doppler. Normal flow augmentation with calf compression is demonstrated. The deep calf veins, as visualized, are compressible. Procedure Note Kathy Cardona MD - 05/28/2025 History: Right lower extremity swelling. Findings: Duplex and color Doppler imaging of the deep venous system of the rightlower extremity was performed from the inguinal ligament to the poplitealfossa. The common femoral, femoral and popliteal veins are patent andcompress completely. Normal spontaneous and phasic venous flow isdemonstrated with Doppler. Normal flow augmentation with calf compressionis demonstrated. The deep calf veins, as visualized, are compressible. IMPRESSION: Impression: No evidence of deep vein thrombosis in the right femoral-popliteal venoussegment. [place] ([id number]) -------- FINAL REPORT -------- Dictated By: Kathy Cardona Dictated Date: 05/28/2025 13:08 ET Assigned Physician: Kathy Cardona Reviewed and Electronically Signed By: Kathy Cardona Signed Date: 05/28/2025 13:09 ET Workstation ID: [id number] Transcribed By: Self Edit Transcribed Date: 05/28/2025 13:08 ET Richard Medrano MD CV VASCULAR PROCEDURES Final Res ult * (ABNORMAL) CBC auto differential (05/28/2025 12:27 PM EDT) WBC 3.9(L) 4.8 - 10.8 K/mcL LAB HEMETOLOGY METHOD 05/28/2025 1:04 PM EDT [facility] RBC 5.90(H) 4.50 - 5.50 M/mcL LAB HEMETOLOGY METHOD 05/28/2025 1:04 PM EDT [facility] Hemoglobin 16.4 13.5 - 17.5 g/dL LAB HEMETOLOGY METHOD 05/28/2025 1:04 PM EDT [facility] Hematocrit 50.8 42.0 - 54.0 % LAB HEMETOLOGY [facility] MCV 86.5 79.0 - 98.0 FL LAB HEMETOLOGY METHOD 05/28/2025 1:04 PM [facility] MCH 27.9 27.0 - 32.0 pcg LAB HEMETOLOGY METHOD 05/28/2025 1:04 [facility] MCHC 32.3 32.0 - 37.0 g/dL LAB HEMETOLOGY METHOD 05/28/2025 1:04 PM [facility] RDW 13.4 11.0 - 15.0 % LAB HEMETOLOGY METHOD 05/28/2025 1:04 PM [facility] Platelets 244 130 - 400 K/mcL LAB HEMETOLOGY METHOD 05/28/2025 1:04 PM [facility] MPV 10.1 7.0 - 11.0 FL LAB HEMETOLOGY METHOD 05/28/2025 1:04 PM [facility] NRBC 0.0 <1.0 % LAB HEMETOLOGY METHOD 05/28/2025 1:04 PM [facility] NRBC Absolute 0.00 <0.10 K/mcL LAB HEMETOLOGY METHOD 05/28/2025 1:04 PM [facility] Neutrophils Relative 40.6 % LAB HEMETOLOGY METHOD 05/28/2025 1:04 PM [facility] Lymphocytes Relative 43.0 % LAB HEMETOLOGY METHOD 05/28/2025 1:04 PM [facility] Monocytes Relative 11.9 % LAB HEMETOLOGY METHOD 05/28/2025 1:04 PM [facility] Eosinophils Relative 3.4 % LAB HEMETOLOGY METHOD 05/28/2025 1:04 PM EDT [facility] Basophils Relative 0.8 % LAB HEMETOLOGY METHOD 05/28/2025 1:04 PM EDT [facility] Immature Granulocytes Relative 0.3 % LAB HEMETOLOGY METHOD 05/28/2025 1:04 PM EDT [facility] Neutrophils Absolute 1.57 1.50 - 7.00 K/mcL LAB HEMETOLOGY METHOD 05/28/2025 1:04 PM EDT [facility] Lymphocytes Absolute 1.66 1.00 - 5.00 K/mcL LAB HEMETOLOGY METHOD 05/28/2025 1:04 PM EDT [facility] Monocytes Absolute 0.46 0.20 - 1.00 K/mcL LAB HEMETOLOGY METHOD 05/28/2025 1:04 PM EDT [facility] Eosinophils Absolute 0.13 0.00 - 0.50 K/mcL LAB HEMETOLOGY METHOD 05/28/2025 1:04 PM EDT [facility] Basophils Absolute 0.03 0.00 - 0.20 K/mcL LAB HEMETOLOGY METHOD 05/28/2025 1:04 PM EDT [facility] Immature Granulocytes Absolute 0.01 0.00 - 0.03 K/mcL LAB HEMETOLOGY METHOD 05/28/2025 1:04 PM EDT [facility] Blood Venous blood specimen / Unknown Venipuncture / Unknown 05/28/2025 12:27 PM EDT 05/28/2025 12:52 PM EDT us Richard Medrano MD LAB BLOOD ORDERABLES Final Resul t [facility] [address] [place] [address], * B-type natriuretic peptide (05/28/2025 12:27 PM EDT) BNP 44 <=100 pcg/mL LAB CHEMISTRY METHOD 05/28/2025 1:28 PM [facility] Blood Venous blood specimen / Unknown Venipuncture / Unknown 05/28/2025 12:27 PM EDT 05/28/2025 12:52 PM EDT us Richard Medrano MD LAB BLOOD ORDERABLES Final Resul t [facility] [address] [place] [address], [place] [phone] * (ABNORMAL) Basic metabolic panel (05/28/2025 12:27 PM EDT) Sodium 138 133 - 145 mmol/L LAB CHEMISTRY METHOD 05/28/2025 2:01 PM [facility] Potassium 5.9(H) 3.5 - 5.5 mmol/L LAB CHEMISTRY METHOD 05/28/2025 2:01 PM [facility] Chloride 105 96 - 110 mmol/L LAB CHEMISTRY METHOD 05/28/2025 2:01 PM [facility] CO2 32 21 - 32 mmol/L LAB CHEMISTRY METHOD 05/28/2025 2:01 PM [facility] Anion Gap 1(L) 3 - 11 LAB CHEMISTRY METHOD 05/28/2025 2:01 PM [facility] Glucose 72 70 - 100 mg/dL LAB CHEMISTRY METHOD 05/28/2025 2:01 PM [facility] BUN 9 5 - 25 mg/dL LAB CHEMISTRY METHOD 05/28/2025 2:01 PM [facility] Creatinine 0.91 0.70 - 1.30 mg/dL LAB CHEMISTRY METHOD 05/28/2025 2:01 PM [facility] eGFR 103 >=60 mL/min/1. 73m2 LAB CHEMISTRY METHOD 05/28/2025 2:01 PM [facility] Comment:Calculation based on the Chronic Kidney Disease Epidemiology Collaboration (CKD-EPI) equation refit without adjustment for race. BUN/Creatinine Ratio 9.9 LAB CHEMISTRY METHOD 05/28/2025 2:01 PM EDT [facility] Calcium 10.0 8.5 - 10.5 mg/dL LAB CHEMISTRY METHOD 05/28/2025 2:01 PM EDT [facility] Blood Venous blood specimen / Unknown Venipuncture / Unknown 05/28/2025 12:27 PM EDT 05/28/2025 12:52 PM EDT us Richard Medrano MD LAB BLOOD ORDERABLES Final Resul t [facility] [address] [place] [address], [place] [phone] documented in this encounter Visit Diagnoses Diagnosis Acute leg pain, right- Primary Cellulitis of right lower leg documented in this encounter Administered Medications Inactive Administered Medications - up to 3 most recent administrations Medication Order MAR Action Action Date Dose Rate Site cephalexin (KEFLEX) capsule 500 mg 500 mg, oral, Once, On Wed05/28/25 at 1329, For 1 dose, Indication: Skin/Soft Tissue Given 05/28/2025 1:49 PM EDT 500 mg sulfamethoxazole-trimethoprim (BACTRIM DS,SEPTRA DS) 800-160 mg per tablet 1 tablet 1 tablet, oral, Once, On Wed05/28/25 at 1329, For 1 dose, Indication: Skin/Soft Tissue Given 05/28/2025 1:49 PM EDT 1 tablet documented in this encounter Active and Recently Administered Medications Times are shown in EDT. 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
[2025-06-02 14:30] VITALS: BP 122/72; PULSE 72; RESP 16; TEMP 36.6; O2SAT 97; BMI 48.6
--- NOTE | 2025-06-02 14:30 | AM.OFFWIN_ITS ---
Intake Vital Signs 06/02/25 14:30 Height 5 ft 6 in Weight 301 lb BMI 48.6 BP 122/72 Blood Pressure Location Rt brachial Position Sitting Respiration 16 Pulse 72 Pulse Source Pulse Oximeter Temp 97.9 F Temp Source Oral Pulse Oximetry (%) 97 Oxygen Delivery Method Room Air Intake Visit Reasons: EP Work note for leg pain Intake Note: Pt is here today was seen at [facility] for Rt leg cellulitis: was given a out of work note til 06/01/25: He says his leg is getting better but not quite yet he needs a extention on his note Patient Tobacco Use Status: Never used Tobacco Allergies No Known Allergies Allergy (Verified 06/02/25 14:31) HPI HPI Comments History of Present Illness Details This is a 50-year-old male who presented to the walk-in clinic requesting an extended work note. He was seen at [facility] Emergency room on 05/28/2025 and he was diagnosed with cellulitis of the right lower extremity. He was prescribed antibiotic treatment with cephalexin and trimethoprim/sulfamethoxazole, which she has been taking as prescribed. He states that the swelling and erythema has significantly improved; however, he is still experiencing some mild swelling and erythema as well as some mild pain of the right lower extremity and feels that he is unable to perform his duties at work. He states that the emergency room provider told him to call his primary care physician if he felt as though he needed an extended work note. He is scheduled to work overnight tonight and tomorrow night. He denies any fevers or chills. He is otherwise feeling well and at his baseline. [facility] Medical History Encounter for general adult medical examination with abnormal findings Swelling of lower extremity Sleep apnea in adult Change in bowel function Snoring Witnessed apneic spells Daytime sleepiness Erythematous rash Tinea corporis Complex sleep apnea syndrome Tinea pedis of both feet Dog bite of abdomen Colon cancer screening Surgical History Hx of cholecystectomy Family History Brother Substance use disorder Brother Substance use disorder Maternal Uncle Substance use disorder Paternal Uncle Substance use disorder Social History Housing: House Alcohol intake: former Patient Tobacco Use Status: Never used Tobacco e-Cigarette/Vaping Use: Never Used Substance Use Type: Marijuana service: No Current occupational status: unemployed 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 Current occupational exposures/hazards: No Cognitive needs: No Hearing needs: No Vision needs: Yes Review of Systems Const All systems reviewed & are unremarkable except as noted in HPI and below Reports no additional complaints Eyes Reports no additional complaints ENT Reports no additional complaints Card Reports no additional complaints Resp Reports no additional complaints GI Reports no additional complaints Reports no additional complaints Musc Reports no additional complaints Skin/Breast Reports system reviewed and no additional complaints, except as documented Neuro Reports no additional complaints Psych Reports no additional complaints Endo Reports no additional complaints Denny/Lymph Reports no additional complaints Aller/Immun Reports no additional complaints Physical Exam Vital Signs: Last Vital Signs Temp 97.9 F 06/02/25 14:30 Pulse 72 06/02/25 14:30 Resp 16 06/02/25 14:30 BP 122/72 06/02/25 14:30 Pulse Ox 97 06/02/25 14:30 Oxygen Delivery Method Room Air 06/02/25 14:30 BMI result Body Mass Index 48.6 Const Other: Vital signs reviewed. Constitutional: Non-toxic appearing. No acute distress. Well-developed and well-nourished. HEENT: Normocephalic and atraumatic. Skin: Warm and dry. Mild erythema and swelling of the distal anterior left lower leg without fluctuance or induration or lymphangitic streaking. There does not appear to be any open wounds or purulent drainage. Neck: Full and painless range of motion. No cervical lymphadenopathy. Cardio: Regular rate. No JVD. Pulmonary: No respiratory distress. No accessory muscle usage. Musculoskeletal: Normal range of motion in joints throughout the body. No deformity or other signs of injury. Neuro: Alert and oriented x4. Cranial nerves 2-12 grossly intact. No focal deficits appreciated. Psych: Normal mood and affect. Assessment & Plan Assessment & Plan (1) Cellulitis of right lower extremity: Code(s): L03.115 - Cellulitis of right lower limb Plan: This is a 50-year-old male who presented to the walk-in clinic requesting an extended work note following recent diagnosis of cellulitis of the right lower extremity. He has been taking his cephalexin and trimethoprim/sulfamethoxazole as prescribed but he is still experiencing some mild swelling and pain of the right lower extremity and does not feel that he is able to perform his work duties. Patient is scheduled to work overnight tonight and tomorrow night. Patient was given an extended work note for tonight and tomorrow night but he should be able to return to work his next scheduled shift on Wednesday06/06/2025 as his antibiotic treatment will be complete at that time. Patient was advised to follow-up here or proceed to the emergency room if he were to develop worsening swelling, worsening erythema, fever/chills, or purulent drainage. Patient verbalizes understanding and he is agreeable with plan. Coding Level of Care Code Est Pt Level 3 (48481) Diagnoses Cellulitis of right lower extremity L03.115
== END 2025-06-02 14:53 | disposition home or self-care (01) ==
PROVIDERS: PCP Internal Medicine; Visit Provider Physician Assistant Medical
DX: L03.115 Cellulitis of right lower limb (principal)

== ENCOUNTER → 2025-06-02 14:16 | Outpatient (BNVA) | payer OTHER, SELFPAY | PROVIDERS: PCP Internal Medicine; Visit Provider Physician Assistant Medical | DX: L03.115 Cellulitis of right lower limb (principal) | CPT/HCPCS: 99212 ==

== ENCOUNTER 2025-06-05 11:54 | Outpatient (AMB) | payer OTHER, SELFPAY ==
[2025-06-05 11:57] VITALS: BP 110/80; PULSE 62; RESP 16; TEMP 36.8; O2SAT 98; BMI 48.1
--- NOTE | 2025-06-05 11:57 | A.OFFPC_ITS ---
Vital Signs 06/05/25 11:57 Height 5 ft 6 in Weight 298 lb BMI 48.1 BP 110/80 Blood Pressure Location Rt brachial Position Sitting Respiration 16 Pulse 62 Pulse Source Pulse Oximeter Temp 98.2 F Temp Source Oral Pulse Oximetry (%) 98 Oxygen Delivery Method Room Air Intake Visit Reasons: rash from medication Allergies No Known Allergies Allergy (Verified 06/02/25 14:31) Medication List - Last Reconciled 06/05/25 by Zaina Junior MD albuterol sulfate 90 mcg/actuation (Ventolin HFA) 1 inh inhalation QID PRN 30 days albuterol sulfate 90 mcg/actuation 2 puffs inhalation Q4-6H PRN 30 days buspirone 5 mg PO BID PRN 90 days cephalexin 500 mg PO QID clonidine HCl 0.1 mg PO BEDTIME clotrimazole-betamethasone 1-0.05 % 1 appl topical ONCE 30 days famotidine 20 mg PO BID furosemide (Lasix) 20 mg PO QAM hydrocortisone 2.5% 1 appl topical BID PRN 30 days nystatin 1 appl topical DAILY 30 days omeprazole 20 mg PO DAILY 90 days ondansetron mg PO sertraline 50 mg PO DAILY sulfamethoxazole-trimethoprim 800-160 mg 1 tab PO BID Tobacco use date assessed: 06/05/25 Dental Screening Dental Screen Date: 06/05/25 Did you have a dental visit in the last 12 months?: No Did you have a dental problem in the last 6 months where you did not have access to dental care?: No Was dental information given to patient?: Patient has dentist HPI rash from medication HPI Details Chief complaint - Rash on the back - Fungal skin infection - Varicose veins History of Present Illness - The patient is a 50-year-old male pres enting with a rash on the back. - Rash noticed in the morning during a s hower. - Not associated with medication; possib le heat rash due to location on back. - No associated itching reported. Howev er confirm that he sweats a lot, and it has been very hot and humid lately - Long-standing fungal skin infection, b etween skin fold of abdomen. - Infection localized due to skin folds, causing intermittent itching. Recently developed cellulitis in that area and was given 2 antibiotics he has finished 7 days' worth of antibiotic - Varicose veins present with previous s welling in the legs. Right more than left - Patient aware of varicose vein issues and previously considered surgery but postponed due to work commitments. Medications: - Buspirone - Clonidine - Famotidine - Furosemide - Omeprazole - Sertraline - Short course of antibiotics (ceased) Social History: - Employment: Currently employed for fiv e months, financial commitments preclude varicose vein surgery - Hygiene: Takes two showers daily, drie s skin thoroughly - Uses medicated powders for sweat absor ption after showers Problem List - Rash on the back - Fungal skin infection - Varicose veins Patient Instructions - Stop taking both antibiotics. - Use fungal cream at night; apply baby powder or similar during the day. Ke toconazole 2% cream sent - Continue to dry skin folds thoroughly with a hairdryer after showers. - Use steroid cream for the current back rash. Prednisone 10 mg for 5 days only once a day - Appointment scheduled for next month. Review of Systems - General: No fever no chills - Neurological: No headaches no dizziness - Ear nose throat: No sore throat no hearing difficulty no ear pain - Cardiovascular: No syncope, no chest pain, no palpitations - Gastrointestinal: No nausea vomiting or diarrhea - Endocrine: No polyuria polydipsia no heat intolerance - Genitourinary: No dysuria , no blood in urine Physical Exam General: No acute distress HEENT: No acute findings Neck: Supple Respiratory system: Able to talk in full sentences, no audible wheeze Cardiovascular: S1-S2 regular in rate and rhythm Gastrointestinal: No pain Extremities: Right leg worse than the left one due to varicose veins no cellulitis noticed 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: Alert awake oriented x3 motor sensory intact Skin: Rash only on the back maculopapular, no itching, normal turgor [facility] Medical History Tinea corporis Encounter for general adult medical examination with abnormal findings Swelling of lower extremity Sleep apnea in adult Change in bowel function Snoring Witnessed apneic spells Daytime sleepiness Erythematous rash Complex sleep apnea syndrome Tinea pedis of both feet Dog bite of abdomen Colon cancer screening Surgical History Hx of cholecystectomy Family History Brother Substance use disorder Brother Substance use disorder Maternal Uncle Substance use disorder Paternal Uncle Substance use disorder Social History Housing: House Alcohol intake: former Patient Tobacco Use Status: Never used Tobacco e-Cigarette/Vaping Use: Never Used Substance Use Type: Marijuana service: No Current occupational status: unemployed 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 Current occupational exposures/hazards: No Cognitive needs: No Hearing needs: No Vision needs: Yes Questionnaire Thrive Questionnaire Date Thrive assessed: 02/27/25 I am a: Patient What is your living situation today?: I do not have a steady places to live I am temporarily staying with others Within the past 12 months, did the food you bought not last and you didn't have the money to get more?: Never true Within the past 12 months, did you worry whether your food would run out before you got money to buy more?: Sometimes True Do you have trouble paying for medicines?: No Do you have trouble getting transportation to medical appointments?: No Do you have trouble paying your heating and electricity bill?: No Do you have trouble taking care of your child, family member or friend?: No Do you have trouble with day-to-day activities such as bathing, preparing meals, shopping, managing finances, etc.?: No Are you currently unemployed and looking for a job?: No Are you interested in more education?: No Please select the resources that you would like help with: Housing/Detention THRIVE Score: 2 ALLY-7 AMB Questionnaire ALLY-7 Date ALLY - 7 assessed: 03/14/25 Source: Developed by Drs. Vish Hunter, Radha Crawley, Don Chavez and colleagues, with an educational tristian from [employer]. Physical exam (Primary Care) Vital Signs: Last Vital Signs Temp 98.2 F 06/05/25 11:57 Pulse 62 06/05/25 11:57 Resp 16 06/05/25 11:57 BP 110/80 06/05/25 11:57 Pulse Ox 98 06/05/25 11:57 Oxygen Delivery Method Room Air 06/05/25 11:57 BMI result Body Mass Index 48.1 Tobacco/Smoking Status: Tobacco use Status Tobacco use date assessed 06/05/25 06/05/25 12:02 Patient Tobacco Use Status Never used Tobacco 06/05/25 12:02 e-Cigarette/Vaping Use Never Used 06/05/25 12:02 Thrive Assessment: Date of Thrive Assessment Date Thrive assessed 02/27/25 06/05/25 12:02 Coding Level of Care Code Est Pt Level 4 (28059) Diagnoses Heat rash L74.0 Varicose veins of both lower extremities without ulcer or inflammation I83.93 Laterality: bilateral Tinea corporis B35.4 Morbid obesity due to excess calories E66.01 Assessment & Plan Assessment & Plan (1) Heat rash: Code(s): L74.0 - Miliaria rubra Category: Medical (2) Varicose veins of lower extremity without ulcer or inflammation: Code(s): I83.90 - Asymptomatic varicose veins of unspecified lower extremity Category: Medical Qualifiers: Laterality: bilateral Qualified Code(s): I83.93 - Asymptomatic varicose veins of bilateral lower extremities (3) Tinea corporis: Code(s): B35.4 - Tinea corporis Category: Medical (4) Morbid obesity due to excess calories: Code(s): E66.01 - Morbid (severe) obesity due to excess calories Category: Medical Plan Chief complaint - Rash on the back - Fungal skin infection - Varicose veins - morbid obesity with BMI of 48.1 History of Present Illness - The patient is a 50-year-old male presenting with a rash on the back. - Rash noticed in the morning during a shower. - Not associated with medication; possible heat rash due to location on back. - No associated itching reported. However confirm that he sweats a lot, and it has been very hot and humid lately - Long-standing fungal skin infection, between skin fold of abdomen. - Infection localized due to skin folds, causing intermittent itching. Recently developed cellulitis in that area and was given 2 antibiotics he has finished 7 days' worth of antibiotic - Varicose veins present with previous swelling in the legs. Right more than left - Patient aware of varicose vein issues and previously considered surgery but postponed due to work commitments. - patient is having difficulty losing weight Medications: - Buspirone - Clonidine - Famotidine - Furosemide - Omeprazole - Sertraline - Short course of antibiotics (ceased) Social History: - Employment: Currently employed for five months, financial commitments preclude varicose vein surgery - Hygiene: Takes two showers daily, dries skin thoroughly - Uses medicated powders for sweat absorption after showers Problem List - Rash on the back - Fungal skin infection - Varicose veins - morbid obesity Patient Instructions - Stop taking both antibiotics. - Use fungal cream at night; apply baby powder or similar during the day. Ketoconazole 2% cream sent - Continue to dry skin folds thoroughly with a hairdryer after showers. - Use steroid cream for the current back rash. Prednisone 10 mg for 5 days only once a day - Appointment scheduled for next month. Medications: New ketoconazole 2% 1 appl topical DAILY 60 grams 6RF prednisone 10 mg PO DAILY 5 tabs 0RF 5 days Discontinued clotrimazole-betamethasone 1-0.05 % Discontinued Reason: Doctor's Order 1 appl topical ONCE 30 days 45 grams 0RF foot rash
--- OUTSIDE RECORDS SUMMARY | 2025-06-05 12:43 | XMS_ITS | Clinical Summary ---
Author Organization [facility] Address [address] [place] [address] Phone Care Team Providers Care Matrix Bath Attendant Name Role Phone Physician, No Pcp Primary Care Provider Unavaila ble Allergies No known active allergies Medications cephalexin (KEFLEX) 500 mg capsule Take 1 capsule (500 mg total) by mouth 4 (four) times a day for 10 days. 40 each 5 06/07/20 25 Active Lactobacillus acidophilus 100 mg (1 billion cell) capsule Take 1 capsule by mouth 2 (two) times a day. 60 each 5 06/27/20 25 Active sulfamethoxazole -trimethoprim (Bactrim DS) 800-160 mg per tablet Take 1 tablet by mouth 2 (two) times a day for 7 days. 14 each 5 06/04/20 25 Encounters Date Type Department Care Team Description 05/28/2025 1:40 PM EDT - 05/28/2025 1:50 PM EDT Emergency [facility] Emergency [address] [place] [address] Richard Medrano MD Acute leg pain, right (Primary Dx); Cellulitis of right lower leg Discharge Disposition: Home or Self Care from Last 3 Months Social History Tobacco Use Types Packs/Day Years Used Date Smoking Tobacco: Never Assessed Sex and Gender Information Value Date Recorded Sex Assigned at Not on file Legal Sex Male 8:28 AM EST Gender Identity Not on file Sexual Orientation Not on file Last Filed Vital Signs Vital Sign Reading [...] Mass Index 47.74 05/28/2025 11:47 AM EDT Plan of Treatment Health Maintenance Due Date Last Done Comments Hepatitis B Vaccines (1 of 3 - 19+ 3-dose series) 1995 Cholesterol Screening (Lipid Panel) 10/04/2022 Colorectal Cancer Screening: Colonoscopy 10/04/2022 HIV Screening 10/04/2022 Hepatitis C Screening 10/04/2022 Social Influencers of Health Screening 10/04/2022 COVID-19 Vaccine (1 - 2023-2 5 season) 2024 Depression Screening 11/01/2024 Influenza Vaccine (#1) 2025 DTaP,Tdap,and Td Vaccines (2 - Td [...] 5 Years) and At-Risk Patients (6 to 49 Years) Aged Out No longer eligi ble based on patient's age to complete this topic RSV Immunization Patients Un pedro 20 months Aged Out No longer eligible b ased on patient's age to complete this topic Varicella Vaccines Aged Out No longer eligible based on patient's age to complete this topic Procedures Procedure Name Priority Date/Time Associated Diagnosis Comments VAS US DUPLEX LOWER EXT VENOUS RIGHT STAT 05/28/2025 12:58 PM EDT Acute leg pain, right CBC WITH AUTO DIFFERENTIAL STAT 05/28/2025 12:27 PM EDT B-TYPE NATRIURETIC PEPTIDE STAT 05/28/2025 12:27 PM EDT BASIC METABOLIC PANEL STAT 05/28/2025 12:27 PM EDT CBC AND DIFFERENTIAL STAT 05/28/2025 12:27 PM EDT from Last 3 Months Results * Vascular US duplex lower extremity venous right (05/28/2025 12:58 PM EDT) Anatomical Region Laterality Modality Vascular, Abdomen Ultrasound 05/28/2025 1:08 PM EDT Impressions 05/28/2025 1:09 PM EDT Impression: No evidence of deep vein thrombosis in the right femoral-popliteal venous segment. [employer] LAYLA ([id number]) -------- FINAL REPORT -------- Dictated By: Kathy Cardona Dictated Date: 05/28/2025 13:08 ET Assigned Physician: Kathy Cardona Reviewed and Electronically Signed By: Kathy Cardona Signed Date: 05/28/2025 13:09 ET Workstation ID: [id number] Transcribed By: Self Edit Transcribed Date: 05/28/2025 [...] thrombosis in the right femoral-popliteal venoussegment. [employer] LAYLA ([id number]) -------- FINAL REPORT -------- Dictated By: Kathy Cardona Dictated Date: 05/28/2025 13:08 ET Assigned Physician: Kathy Cardona Reviewed and Electronically Signed By: Kathy Cardona Signed Date: 05/28/2025 13:09 ET Workstation ID: [id number] Transcribed By: Self Edit Transcribed Date: 05/28/2025 13:08 ET Richard Medrano MD CV VASCULAR PROCEDURES Final Res ult * (ABNORMAL) CBC auto differential (05/28/2025 12:27 PM EDT) WBC 3.9(L) 4.8 - 10.8 K/mcL LAB HEMETOLOGY METHOD 05/28/2025 1:04 PM EDT [facility] RBC 5.90(H) 4.50 - 5.50 M/mcL LAB HEMETOLOGY METHOD 05/28/2025 1:04 PM EDT [facility] Hemoglobin 16.4 13.5 - 17.5 g/dL LAB HEMETOLOGY METHOD 05/28/2025 1:04 PM EDT [facility] Hematocrit 50.8 42.0 - 54.0 % LAB HEMETOLOGY METHOD 05/28/2025 1:04 PM EDT [facility] MCV 86.5 79.0 - 98.0 FL LAB [facility] MCH 27.9 27.0 - 32.0 pcg LAB HEMETOLOGY METHOD 05/28/2025 1:04 PM EDT [facility] MCHC 32.3 32.0 - 37.0 g/dL LAB HEMETOLOGY METHOD 05/28/2025 1:04 PM [facility] RDW 13.4 11.0 - 15.0 % LAB HEMETOLOGY METHOD 05/28/2025 1:04 PM [facility] Platelets 244 130 - 400 K/mcL LAB HEMETOLOGY [facility] MPV 10.1 7.0 - 11.0 FL [...] 05/28/2025 1:04 PM [facility] Basophils Relative 0.8 % LAB HEMETOLOGY METHOD 05/28/2025 1:04 PM [facility] Immature Granulocytes Relative 0.3 % LAB HEMETOLOGY METHOD 05/28/2025 1:04 PM [facility] Neutrophils Absolute 1.57 1.50 - 7.00 K/mcL LAB HEMETOLOGY METHOD 05/28/2025 1:04 PM EDT [facility] Lymphocytes Absolute 1.66 1.00 - 5.00 K/mcL LAB HEMETOLOGY METHOD 05/28/2025 1:04 PM EDT [facility] Monocytes Absolute 0.46 0.20 - 1.00 K/mcL LAB HEMETOLOGY METHOD 05/28/2025 1:04 PM EDT [facility] Eosinophils Absolute 0.13 0.00 - 0.50 K/mcL LAB HEMETOLOGY METHOD 05/28/2025 1:04 PM EDT [facility] Basophils Absolute 0.03 0.00 - 0.20 K/mcL LAB HEMETOLOGY METHOD 05/28/2025 1:04 PM EDT [facility] Immature Granulocytes Absolute 0.01 0.00 - 0.03 K/mcL LAB HEMETOLOGY METHOD 05/28/2025 1:04 PM EDT [facility] Blood Venous blood specimen / Unknown Venipuncture / Unknown 05/28/2025 12:27 PM EDT 05/28/2025 12:52 PM EDT us Richard Medrano MD LAB BLOOD ORDERABLES Final Resul t Performing Organization Address City/[facility]/ZIP Co de Phone Number [facility] [address] [place] [address], * B-type natriuretic peptide (05/28/2025 12:27 PM EDT) BNP 44 <=100 pcg/mL LAB CHEMISTRY METHOD 05/28/2025 1:28 PM EDT [facility] Blood Venous blood specimen / Unknown Venipuncture / Unknown 05/28/2025 12:27 PM EDT 05/28/2025 12:52 PM EDT us Richard Medrano MD LAB BLOOD ORDERABLES Final Resul t [facility] [address] [place] [address], [place] [phone] * (ABNORMAL) Basic metabolic panel (05/28/2025 12:27 [...] 9.9 LAB CHEMISTRY METHOD 05/28/2025 2:01 PM [facility] Calcium 10.0 8.5 - 10.5 mg/dL LAB CHEMISTRY METHOD 05/28/2025 2:01 PM [facility] Blood Venous blood specimen / Unknown Venipuncture / Unknown 05/28/2025 12:27 PM EDT 05/28/2025 12:52 PM EDT us Richard Medrano MD LAB BLOOD ORDERABLES Final Resul t [facility] ([facility] [address] [place] [address], from Last 3 Months Insurance [facility] Care Teams Matrix Bath Attendant Relationship Specialty Start Date End Date Physician, No Pcp PCP - General 05/28/25
== END 2025-06-05 13:12 | disposition home or self-care (01) ==
PROVIDERS: PCP Internal Medicine; Visit Provider Internal Medicine
DX: L74.0 Miliaria rubra (principal); I83.93 Asymptomatic varicose veins of bilateral lower extremities; E66.01 Morbid (severe) obesity due to excess calories; Z68.42 Body mass index [BMI] 45.0-49.9, adult

== ENCOUNTER → 2025-06-05 11:54 | Outpatient (BNVA) | payer OTHER, SELFPAY | PROVIDERS: PCP Internal Medicine; Visit Provider Internal Medicine | DX: I83.93 Asymptomatic varicose veins of bilateral lower extremities (principal); R21 Rash and other nonspecific skin eruption; B35.4 Tinea corporis; E66.01 Morbid (severe) obesity due to excess calories; Z68.42 Body mass index [BMI] 45.0-49.9, adult | CPT/HCPCS: 99212 ==

== ENCOUNTER 2025-06-12 10:46 | Outpatient (AMB) | payer OTHER, SELFPAY ==
[2025-06-12 10:49] VITALS: BP 122/80; PULSE 68; TEMP 36.6; O2SAT 98; BMI 47.4
--- NOTE | 2025-06-12 10:49 | A.OFFPC_ITS ---
Vital Signs 06/12/25 10:49 Height 5 ft 6 in Weight 294 lb BMI 47.4 BP 122/80 Blood Pressure Location Lt brachial Position Sitting Pulse 68 Pulse Source Pulse Oximeter Temp 97.9 F Temp Source Oral Pulse Oximetry (%) 98 Oxygen Delivery Method Room Air Intake Visit Reasons: Follow up to fill out paper work Allergies No Known Allergies Allergy (Verified 06/12/25 10:49) Medication List - Last Reconciled 06/12/25 by Zaina Junior MD albuterol sulfate 90 mcg/actuation (Ventolin HFA) 1 inh inhalation QID PRN 30 days albuterol sulfate 90 mcg/actuation 2 puffs inhalation Q4-6H PRN 30 days buspirone 5 mg PO BID PRN 90 days clonidine HCl 0.1 mg PO BEDTIME famotidine 20 mg PO BID furosemide (Lasix) 20 mg PO QAM hydrocortisone 2.5% 1 appl topical BID PRN 30 days ketoconazole 2% 1 appl topical DAILY nystatin 1 appl topical DAILY 30 days omeprazole 20 mg PO DAILY 90 days ondansetron mg PO sertraline 50 mg PO DAILY Tobacco use date assessed: 06/05/25 Dental Screening Dental Screen Date: 06/05/25 HPI Follow up to fill out paper work HPI Details Chief Complaint The patient seeks a note to verify absence from work due to cellulitis and clearance to resume work duties. History of Present Illness The patient is a 50-year-old male presenting with recent hx of cellulitis of the right leg. Cellulitis: - The patient developed cellulitis of th e right leg leading to visit to [facility] ER - He was treated with two antibiotics at that time. - Improvement was noted during follow-up at a walk-in clinic on 06/02/2025. - The patient was off work from June 02 to June 06. - Currently, he does not report any wors ening symptoms and has resumed work as of June 06. 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 - He was off work for a few days due to his medical condition. Problem List - Cellulitis of the right leg Patient Instructions - The patient is cleared to return to [facility] duty at work following resolution of cellulitis. 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 awake oriented x3 sensory intact Skin: Normal turgor [facility] Medical History Tinea corporis Encounter for general adult medical examination with abnormal findings Swelling of lower extremity Sleep apnea in adult Change in bowel function Snoring Witnessed apneic spells Daytime sleepiness Erythematous rash Complex sleep apnea syndrome Tinea pedis of both feet Dog bite of abdomen Colon cancer screening Surgical History Hx of cholecystectomy Family History Brother Substance use disorder Brother Substance use disorder Maternal Uncle Substance use disorder Paternal Uncle Substance use disorder Social History Housing: House Alcohol intake: former Patient Tobacco Use Status: Never used Tobacco e-Cigarette/Vaping Use: Never Used Substance Use Type: Marijuana service: No Current occupational status: unemployed 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 Current occupational exposures/hazards: No Cognitive needs: No Hearing needs: No Vision needs: Yes Questionnaire Thrive Questionnaire Date Thrive assessed: 02/27/25 I am a: Patient What is your living situation today?: I do not have a steady places to live I am temporarily staying with others Within the past 12 months, did the food you bought not last and you didn't have the money to get more?: Never true Within the past 12 months, did you worry whether your food would run out before you got money to buy more?: Sometimes True Do you have trouble paying for medicines?: No Do you have trouble getting transportation to medical appointments?: No Do you have trouble paying your heating and electricity bill?: No Do you have trouble taking care of your child, family member or friend?: No Do you have trouble with day-to-day activities such as bathing, preparing meals, shopping, managing finances, etc.?: No Are you currently unemployed and looking for a job?: No Are you interested in more education?: No Please select the resources that you would like help with: Housing/Alf THRIVE Score: 2 ALLY-7 AMB Questionnaire ALLY-7 Date ALLY - 7 assessed: 03/14/25 Source: Developed by Drs. Vish Hunter, Radha Crawley, Don Chavez and colleagues, with an educational tristian from [employer]). Physical exam (Primary Care) Vital Signs: Last Vital Signs Temp 97.9 F 06/12/25 10:49 Pulse 68 06/12/25 10:49 BP 122/80 06/12/25 10:49 Pulse Ox 98 06/12/25 10:49 Oxygen Delivery Method Room Air 06/12/25 10:49 BMI result Body Mass Index 47.4 Tobacco/Smoking Status: Tobacco use Status Tobacco use date assessed 06/05/25 06/12/25 10:55 Patient Tobacco Use Status Never used Tobacco 06/12/25 10:55 e-Cigarette/Vaping Use Never Used 06/12/25 10:55 Thrive Assessment: Date of Thrive Assessment Date Thrive assessed 02/27/25 06/12/25 10:55 Coding Level of Care Code Est Pt Level 3 (93069) Diagnoses Varicose veins of both lower extremities without ulcer or inflammation I83.93 Laterality: bilateral Assessment & Plan Assessment & Plan (1) Varicose veins of lower extremity without ulcer or inflammation: Code(s): I83.90 - Asymptomatic varicose veins of unspecified lower extremity Category: Medical Qualifiers: Laterality: bilateral Qualified Code(s): I83.93 - Asymptomatic varicose veins of bilateral lower extremities Plan Chief Complaint The patient seeks a note to verify absence from work due to cellulitis and clearance to resume work duties. History of Present Illness The patient is a 50-year-old male presenting with recent hx of cellulitis of the right leg. Cellulitis: - The patient developed cellulitis of the right leg leading to visit to [facility] ER - He was treated with two antibiotics at that time. - Improvement was noted during follow-up at a walk-in clinic on 06/02/2025. - The patient was off work from June 02 to June 06. - Currently, he does not report any worsening symptoms and has resumed work as of June 06. 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 - He was off work for a few days due to his medical condition. Problem List - Cellulitis of the right leg Patient Instructions - The patient is cleared to return to full duty at work following resolution of cellulitis.
--- OUTSIDE RECORDS SUMMARY | 2025-06-12 11:54 | XMS_ITS | Clinical Summary ---
Author Organization [facility] Address [address] [place] [phone] Phone Care Team Providers Care Repair Armature Winder Name Role Phone Physician, No Pcp Primary Care Provider Unavaila ble Allergies No known active allergies Medications Lactobacillus acidophilus 100 mg (1 billion cell) capsule Take 1 capsule by mouth 2 (two) times a day. 60 each 5 06/27/20 25 Active albuterol HFA (PROAIR HFA ; PROVENTIL HFA ; VENTOLIN HFA) 90 mcg/actuation inhaler Inhale 2 puffs by mouth every 4 (four) hours if needed for wheezing. 2 Active busPIRone (BUSPAR) 15 mg tablet Take 1 tablet (15 mg total) by mouth 2 (two) times a day. 5 Active cloNIDine (CATAPRES) 0.1 mg tablet Take 1 tablet (0.1 mg total) by mouth 2 (two) times a day. 5 Active famotidine (PEPCID) 20 mg tablet Take 1 tablet (20 mg total) by mouth 2 (two) times a day if needed for indigestion . 3 Active furosemide (LASIX) 20 mg tablet Take 1 tablet (20 mg total) by mouth 1 (one) time each day. 1 Active omeprazole (PriLOSEC) [address] capsule Take 1 capsule (20 mg total) by mouth 1 (one) time each day. 5 Active ondansetron ODT (ZOFRAN-ODT) 8 mg disintegrating tablet Take 1 tablet (8 mg total) by mouth every 8 (eight) hours if needed for nausea or vomiting. 3 Active sertraline (ZOLOFT) 50 mg tablet Take 1 tablet (50 mg total) by mouth 1 (one) time each day. 5 Active cephalexin (KEFLEX) 500 mg capsule Take 1 capsule (500 mg total) by mouth 4 (four) times a day for 10 days. 40 each 5 06/07/20 25 sulfamethoxazole-tr imethoprim (Bactrim DS) 800-160 mg per tablet Take 1 tablet by mouth 2 (two) times a day for 7 days. 14 each 5 06/04/20 25 Encounters Date Type Department Care Team Description 05/28/2025 1:40 PM EDT - 05/28/2025 1:50 PM EDT Emergency [facility] Emergency [address] [place] [id number] Richard Medrano MD Acute leg pain, right (Primary Dx); Cellulitis of right lower leg Discharge Disposition: Home or Self Care from Last 3 Months Immunizations Name Administration Dates Next Due Human Rabies, Chicken Fibrob last Cell Culture, (Rabavert) 10/27/2023,10/20/2023,10/16/2023, 023 Human Rabies, Human Diploid Cell Culture, (Imovax) 10/20/2023 Tdap Tetanus diptheria acell ular pertussis (Boostrix; Adacel) 7yo and older 10/13/2023 Social History Tobacco Use Types Packs/Day Years [...] the right femoral-popliteal venous segment. Telebenito RICH ([id number]) -------- FINAL REPORT -------- Dictated By: Kathy Cardona Dictated Date: 05/28/2025 13:08 ET Assigned Physician: Kathy Cardona Reviewed and Electronically Signed By: Kathy Cardona Signed Date: 05/28/2025 13:09 ET Workstation ID: [id number] Transcribed By: Self Edit Transcribed Date: 05/28/2025 [...] thrombosis in the right femoral-popliteal venoussegment. Telerad PA ([id number]) -------- FINAL REPORT -------- Dictated By: Kathy Cardona Dictated Date: 05/28/2025 13:08 ET Assigned Physician: Kathy Cardona Reviewed and Electronically Signed By: Kathy Cardona Signed Date: 05/28/2025 13:09 ET Workstation ID: [id number] Transcribed By: Self Edit Transcribed Date: 05/28/2025 13:08 ET us Richard Medrano MD CV VASCULAR PROCEDURES Final Res ult * (ABNORMAL) CBC auto differential (05/28/2025 12:27 PM EDT) WBC 3.9(L) 4.8 - 10.8 K/mcL LAB HEMETOLOGY METHOD 05/28/2025 1:04 PM EDT [facility] RBC 5.90(H) 4.50 - 5.50 M/mcL LAB [facility] Hemoglobin 16.4 13.5 - 17.5 g/dL LAB HEMETOLOGY METHOD 05/28[facility]2025 [facility] Hematocrit 50.8 42.0 - 54.0 % LAB HEMETOLOGY METHOD 05/28/2025 1:04 PM EDT [facility] MCV 86.5 79.0 - 98.0 FL LAB HEMETOLOGY METHOD [facility]/28[facility]2025 [facility] MCH 27.9 27.0 - 32.0 pcg LAB HEMETOLOGY METHOD 05/28/2025 [facility] MCHC 32.3 32.0 - 37.0 g/dL LAB HEMETOLOGY METHOD 05/28/2025 [facility] RDW 13.4 11.0 - 15.0 % LAB HEMETOLOGY METHOD 05/28/2025 1:04 PM [facility] Platelets 244 130 - 400 K/mcL LAB HEMETOLOGY METHOD 05/28/2025 1:04 PM [facility] MPV 10.1 7.0 - 11.0 FL LAB HEMETOLOGY METHOD 05/28/2025 1:04 PM [facility] NRBC 0.0 <1.0 % LAB HEMETOLOGY METHOD 05/28/2025 1:04 PM [facility] NRBC Absolute 0.00 <0.10 K/mcL LAB HEMETOLOGY METHOD 05/28/2025 1:04 PM [facility] Neutrophils Relative 40.6 % LAB HEMETOLOGY METHOD 05/28/2025 1:04 PM [facility] Lymphocytes Relative 43.0 % LAB HEMETOLOGY METHOD 05/28/2025 1:04 PM [facility] Monocytes Relative 11.9 % LAB HEMETOLOGY METHOD 05/28/2025 1:04 PM [facility] Eosinophils Relative 3.4 % LAB HEMETOLOGY METHOD 05/28/2025 1:04 PM [facility] Basophils Relative 0.8 % LAB HEMETOLOGY METHOD 05/28/2025 1:04 PM [facility] Immature Granulocytes Relative 0.3 % LAB HEMETOLOGY METHOD 05/28/2025 1:04 PM [facility] Neutrophils Absolute 1.57 1.50 - 7.00 K/mcL LAB HEMETOLOGY METHOD 05/28/2025 1:04 PM [facility] Lymphocytes Absolute 1.66 1.00 - 5.00 K/mcL LAB HEMETOLOGY METHOD 05/28/2025 1:04 PM [facility] Monocytes Absolute 0.46 0.20 - 1.00 K/mcL LAB HEMETOLOGY METHOD 05/28/2025 1:04 PM EDT [facility] Eosinophils Absolute 0.13 0.00 - 0.50 K/[facility] LAB HEMETOLOGY METHOD 05/28/2025 1:04 PM EDT [facility] Basophils Absolute 0.03 0.00 - 0.20 K/mcL LAB HEMETOLOGY METHOD 05/28/2025 1:04 PM EDT [facility] Immature Granulocytes Absolute 0.01 0.00 - 0.03 K/[facility] LAB HEMETOLOGY METHOD 05/28/2025 1:04 PM EDT [facility] Blood Venous blood specimen / Unknown Venipuncture / Unknown 05/28/2025 12:27 PM EDT 05/28/2025 12:52 PM EDT us Richard Medrano MD LAB BLOOD ORDERABLES Final Resul t Performing Organization Address City/[facility]/ZIP Co de Phone Number [facility] [address] [place] [address], [place] [phone] * B-type natriuretic peptide (05/28/2025 12:27 PM EDT) Pathologist [facility] BNP 44 <=100 pcg/mL LAB CHEMISTRY METHOD 05/28/2025 1:28 PM EDT [facility] Blood Venous blood specimen / Unknown Venipuncture / Unknown 05/28/2025 12:27 PM EDT 05/28/2025 12:52 PM EDT us Richard Medrano MD LAB BLOOD ORDERABLES Final Resul t [facility] [address] [place] [address], [place] [phone] * (ABNORMAL) Basic metabolic panel (05/28/2025 12:27 PM EDT) Sodium 138 133 - 145 mmol/L LAB CHEMISTRY METHOD 05/28/2025 2:01 PM [facility] Potassium 5.9(H) 3.5 - 5.5 mmol/L LAB CHEMISTRY METHOD 05/28/2025 2:01 PM [facility] Chloride 105 96 - 110 mmol/L LAB CHEMISTRY METHOD 05/28/2025 2:01 PM [facility] CO2 32 21 - 32 mmol/L LAB CHEMISTRY METHOD 05/28/2025 2:01 PM [facility] Anion Gap 1(L) 3 - 11 LAB CHEMISTRY METHOD 05/28/2025 2:01 PM [facility] Glucose 72 70 - 100 mg/dL LAB CHEMISTRY METHOD 05/28/2025 2:01 PM [facility] BUN 9 5 - 25 mg/dL LAB CHEMISTRY METHOD 05/28/2025 2:01 PM [facility] Creatinine 0.91 0.70 - 1.30 mg/dL LAB CHEMISTRY METHOD 05/28/2025 2:01 PM [facility] eGFR 103 >=60 mL/min/1. 73m2 LAB CHEMISTRY METHOD 05/28/2025 2:01 PM [facility] Comment:Calculation based on the Chronic Kidney Disease Epidemiology Collaboration (CKD-EPI) equation refit without adjustment for race. BUN/Creatinine Ratio 9.9 LAB CHEMISTRY METHOD 05/28/2025 2:01 PM [facility] Calcium 10.0 8.5 - 10.5 mg/dL LAB CHEMISTRY METHOD 05/28/2025 2:01 PM [facility] Blood Venous blood specimen / Unknown Venipuncture / Unknown 05/28/2025 12:27 PM EDT 05/28/2025 12:52 PM EDT us Richard Medrano MD LAB BLOOD ORDERABLES Final Resul t [facility] [place] [facility] [address] [place] [address], from Last [address] [address] PLAN Care Teams Repair Armature Winder Relationship Specialty Start Date End Date Physician, No Pcp PCP - General 05/28/25
== END 2025-06-12 11:16 | disposition home or self-care (01) ==
LOC: HO.HMCC 10:46
PROVIDERS: PCP Internal Medicine; Visit Provider Internal Medicine
DX: I83.93 Asymptomatic varicose veins of bilateral lower extremities (principal)

== ENCOUNTER → 2025-06-12 10:46 | Outpatient (BNVA) | payer OTHER, SELFPAY | PROVIDERS: PCP Internal Medicine; Visit Provider Internal Medicine | DX: I83.93 Asymptomatic varicose veins of bilateral lower extremities (principal) | CPT/HCPCS: 99212 ==

== ENCOUNTER 2025-06-21 08:58 | Outpatient (AMB) | payer OTHER, SELFPAY ==
--- NOTE | 2025-06-21 09:14 | MHC.PC.OV ---
Intake Visit Reasons: disability form Allergies No Known Allergies Allergy (Verified 06/12/25 10:49) Medication List - Last Reconciled 06/21/25 by Zaina Junior MD albuterol sulfate 90 mcg/actuation (Ventolin HFA) 1 inh inhalation QID PRN 30 days albuterol sulfate 90 mcg/actuation 2 puffs inhalation Q4-6H PRN 30 days buspirone 5 mg PO BID PRN 90 days clonidine HCl 0.1 mg PO BEDTIME famotidine 20 mg PO BID furosemide (Lasix) 20 mg PO QAM hydrocortisone 2.5% 1 appl topical BID PRN 30 days ketoconazole 2% 1 appl topical DAILY nystatin 1 appl topical DAILY 30 days omeprazole 20 mg PO DAILY 90 days ondansetron mg PO sertraline 50 mg PO DAILY Tobacco use date assessed: 06/05/25 Dental Screening Dental Screen Date: 06/05/25 HPI disability form HPI Details Chief Complaint The patient needs paperwork completed due to cellulitis in the right leg. History of Present Illness The patient is a 50-year-old male presenting with cellulitis of the right leg. Cellulitis: - The condition started on May 26, following a visit to [facility]. - The patient had to stop working due to the illness. - The patient remained off work until June 06. - The cellulitis did not require hospital admission. - The patient had paperwork excusing him from June 02 to June 06 to address recovery needs. - Subsequently, the patient returned to work on June 06, having recovered from cellulitis. Social History: - The patient had to take time off work due to cellulitis from May 26 to June 06. 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 Review of Systems - General: No fever no chills - Neurological: No headaches no dizziness - Ear nose throat: No sore throat no hearing difficulty no ear pain - Cardiovascular: No syncope, no chest pain, no palpitations - Gastrointestinal: No nausea vomiting or diarrhea [facility] Medical History Tinea corporis Encounter for general adult medical examination with abnormal findings Swelling of lower extremity Sleep apnea in adult Change in bowel function Snoring Witnessed apneic spells Daytime sleepiness Erythematous rash Complex sleep apnea syndrome Tinea pedis of both feet Dog bite of abdomen Colon cancer screening Surgical History Hx of cholecystectomy Family History Brother Substance use disorder Brother Substance use disorder Maternal Uncle Substance use disorder Paternal Uncle Substance use disorder Social History Housing: House Alcohol intake: former Patient Tobacco Use Status: Never used Tobacco e-Cigarette/Vaping Use: Never Used Substance Use Type: Marijuana service: No Current occupational status: unemployed 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 Current occupational exposures/hazards: No Cognitive needs: No Hearing needs: No Vision needs: Yes Questionnaire Thrive Questionnaire Date Thrive assessed: 02/27/25 I am a: Patient What is your living situation today?: I do not have a steady places to live I am temporarily staying with others Within the past 12 months, did the food you bought not last and you didn't have the money to get more?: Never true Within the past 12 months, did you worry whether your food would run out before you got money to buy more?: Sometimes True Do you have trouble paying for medicines?: No Do you have trouble getting transportation to medical appointments?: No Do you have trouble paying your heating and electricity bill?: No Do you have trouble taking care of your child, family member or friend?: No Do you have trouble with day-to-day activities such as bathing, preparing meals, shopping, managing finances, etc.?: No Are you currently unemployed and looking for a job?: No Are you interested in more education?: No Please select the resources that you would like help with: Housing/Long-Term THRIVE Score: 2 ALLY-7 AMB Questionnaire ALLY-7 Date ALLY - 7 assessed: 03/14/25 Source: Developed by Drs. Vish Hunter, Radha Crawley, Don Chavez and colleagues, with an educational tristian from [employer]. Physical exam (Primary Care) Tobacco/Smoking Status: Tobacco use Status Tobacco use date assessed 06/05/25 06/21/25 09:15 Patient Tobacco Use Status Never used Tobacco 06/21/25 09:15 e-Cigarette/Vaping Use Never Used 06/21/25 09:15 Thrive Assessment: Date of Thrive Assessment Date Thrive assessed 02/27/25 06/21/25 09:15 Telehealth Telehealth Telehealth Platform: [facility] Location of provider rendering services: practice address Location of patient: address on file Patient Identification confirmed using: Name, : Yes Telehealth method: video Patient verbally consented to treatment: Yes Patient verbally consented to billing insurance company: Yes Patient informed of any privacy concerns related to visit: Yes Minutes spent on Phone/Video with Pt.: 13 Coding Level of Care Code Tele Est Pt Level 3 (15698) Diagnoses Cellulitis of leg without foot, right L03.115 Assessment & Plan Assessment & Plan (1) Cellulitis of leg without foot, right: Code(s): L03.115 - Cellulitis of right lower limb Category: Medical Plan Chief Complaint The patient needs paperwork completed due to cellulitis in the right leg. History of Present Illness The patient is a 50-year-old male presenting with cellulitis of the right leg. Cellulitis: - The condition started on May 26, following a visit to [facility]. - The patient had to stop working due to the illness. - The patient remained off work until June 06. - The cellulitis did not require hospital admission. - The patient had paperwork excusing him from June 02 to June 06 to address recovery needs. - Subsequently, the patient returned to work on June 06, having recovered from cellulitis. Social History: - The patient had to take time off work due to cellulitis from May 26 to June 06. 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
--- OUTSIDE RECORDS SUMMARY | 2025-06-21 10:00 | XMS_ITS | Clinical Summary ---
Author Organization [facility] Address [address] [place] [phone] Phone Care Team Providers Care Parts Facilitator Name Role Phone Physician, No Pcp Primary [...] 1 (one) time each day. 5 Active predniSONE (DELTASONE) 10 mg tablet Take 1 tablet (10 mg total) by mouth 1 (one) time each day. See instruction s. 5 tablet 5 Active cephalexin (KEFLEX) 500 mg capsule Take 1 capsule (500 mg total) by mouth 4 (four) times a day for 10 days. 40 each 5 06/07/20 25 sulfamethoxazole-tr imethoprim (Bactrim DS) 800-160 mg per tablet Take 1 tablet by mouth 2 (two) times a day for 7 days. 14 each 5 06/04/20 25 Encounters Date Type Department Care Team Description 06/13/2025 11:46 AM EDT - 06/13/2025 12:23 PM EDT Emergency [facility] Emergency [address] [place] [phone] Ankit Dash MD Viral upper respiratory tract infection (Primary Dx); Asthma exacerbation, mild Discharge Disposition: Home or Self Care 05/28/2025 1:40 PM EDT - 05/28/2025 1:50 PM EDT Emergency [facility] Emergency [address] [place] [phone] Richard Medrano MD Acute leg pain, right [...] Information Value Date Recorded Sex Assigned at Male 06/13/2025 12:18 PM EDT Legal Sex Male 8:28 AM EST Gender Identity Male 06/13/2025 12:18 PM EDT Sexual Orientation Not on file Last Filed Vital Signs Vital Sign Reading Time Taken Comments Blood Pressure 142/72 06/13/2025 10:38 AM EDT Pulse 57 06/13/2025 10:38 AM EDT Temperature 36.4 C (97.6 F) 05/28/2025 11:47 AM EDT Respiratory Rate 20 06/13/2025 10:38 AM EDT Oxygen Saturation 100% 06/13/2025 10:38 AM EDT Inhaled Oxygen Concentration - - Weight 134 kg (295 lb) 06/13/2025 10:38 AM EDT Height 167.6 cm (5' 6 ) 06/13/2025 10:38 AM EDT Body Mass Index 47.61 06/13/2025 10:38 AM EDT Plan of Treatment Health Maintenance Due Date Last Done Comments Hepatitis B Vaccines (1 of 3 - 19+ 3-dose series) 1995 Pneumococcal Vaccine: Pediat rics (0 to 5 Years) and At-Risk Patients (6 to 49 Years) (1 of 2 - PCV) 1995 Cholesterol Screening (Lipid Panel) 10/04/2022 Colorectal [...] thrombosis in the right femoral-popliteal venous segment. Og RICH ([id number]) -------- FINAL REPORT -------- Dictated By: Kathy Cardona Dictated Date: 05/28/2025 13:08 ET Assigned Physician: Kathy Cardona Reviewed and Electronically Signed By: Kathy Cardona Signed Date: 05/28/2025 13:09 ET Workstation ID: [id number] Transcribed By: Self Edit Transcribed Date: 05/28/2025 [...] in the right femoral-popliteal venoussegment. Telerad LAYLA ([id number]) -------- FINAL REPORT -------- Dictated By: Kathy Cardona Dictated Date: 05/28/2025 13:08 ET Assigned Physician: Kathy Cardona Reviewed and Electronically Signed By: Kathy Cardona Signed Date: 05/28/2025 13:09 ET Workstation ID: [id number] Transcribed By: Self Edit Transcribed Date: 05/28/2025 [...] [place] LAB HEMETOLOGY METHOD 05/28/2025 1:04 PM EDT [facility] MCH 27.9 27.0 - 32.0 pcg LAB HEMETOLOGY METHOD [facility] MCHC 32.3 32.0 - 37.0 g/dL LAB HEMETOLOGY METHOD [facility]/28[facility]2025 [facility] RDW 13.4 11.0 - 15.0 % LAB HEMETOLOGY METHOD 05/28/2025 1:[facility] Platelets 244 130 - 400 K/mcL LAB HEMETOLOGY METHOD 05/28/2025 1:[facility] MPV 10.1 7.0 - 11.0 FL LAB HEMETOLOGY METHOD 05/28/2025 1:[facility] NRBC 0.0 <1.0 % LAB HEMETOLOGY METHOD 05/28/2025 1:[facility] NRBC Absolute 0.00 <0.10 K/mcL LAB HEMETOLOGY METHOD 05/28/2025 1:04 PM [facility] Neutrophils Relative 40.6 % LAB HEMETOLOGY METHOD 05/28/2025 1:04 [facility] Lymphocytes Relative 43.0 % LAB HEMETOLOGY METHOD 05/28/2025 1:04 [facility] Monocytes Relative 11.9 % LAB HEMETOLOGY METHOD 05/28/2025 1:04 [facility] Eosinophils Relative 3.4 % LAB HEMETOLOGY METHOD 05/28/2025 1:04 PM [facility] Basophils Relative 0.8 % LAB HEMETOLOGY METHOD 05/28/2025 1:04 PM [facility] Immature Granulocytes Relative 0.3 % LAB HEMETOLOGY METHOD 05/28/2025 1:04 PM EDT [facility] Neutrophils Absolute 1.57 1.50 - 7.00 [...] MD LAB BLOOD ORDERABLES Final Resul t [facility]) [facility] [address] [place] [address], * B-type natriuretic peptide (05/28/2025 12:27 PM EDT) BNP 44 <=100 pcg/mL LAB CHEMISTRY METHOD 05/28/2025 1:28 PM EDT [facility] Blood Venous blood specimen / Unknown Venipuncture / Unknown 05/28/2025 12:27 PM EDT 05/28/2025 12:52 PM EDT us Richard Medrano MD LAB BLOOD ORDERABLES Final Resul t [facility] [address] [place] [address], [place] [phone] * (ABNORMAL) Basic metabolic panel (05/28/2025 12:27 PM EDT) Sodium 138 133 - 145 mmol/L LAB CHEMISTRY METHOD 05/28/2025 2:01 PM [facility] Potassium 5.9(H) 3.5 - 5.5 mmol/L LAB CHEMISTRY METHOD 05/28/2025 2:01 PM [facility] Chloride 105 96 - 110 mmol/L LAB CHEMISTRY METHOD 05/28/2025 2:01 PM [facility] CO2 32 21 - 32 mmol/L LAB CHEMISTRY METHOD 05/28/2025 2:01 PM [facility] Anion Gap 1(L) 3 - 11 LAB CHEMISTRY METHOD 05/28/2025 2:01 PM [facility] Glucose 72 70 - 100 mg/dL LAB CHEMISTRY METHOD 05/28/2025 2:01 PM [facility] BUN 9 5 - 25 mg/dL LAB CHEMISTRY METHOD 05/28/2025 2:01 PM [facility] Creatinine 0.91 0.70 - 1.30 mg/dL LAB CHEMISTRY METHOD 05/28/2025 2:01 PM [facility] eGFR 103 >=60 mL/min/1. 73m2 LAB CHEMISTRY METHOD 05/28/2025 2:01 PM [facility] Comment:Calculation based on the Chronic Kidney Disease Epidemiology Collaboration (CKD-EPI) equation refit without adjustment for race. BUN/Creatinine Ratio 9.9 LAB CHEMISTRY METHOD 05/28/2025 2:01 PM EDT [facility] Calcium 10.0 8.5 - 10.5 mg/dL LAB CHEMISTRY METHOD 05/28/2025 2:01 PM EDT [facility] Blood Venous blood specimen / Unknown Venipuncture / Unknown 05/28/2025 12:27 PM EDT 05/28/2025 12:52 PM EDT us Richard Medrano MD LAB BLOOD ORDERABLES Final Resul t [facility] ([facility] [address] [place] [address], from Last [address] [facility] PLAN Care Teams Parts Facilitator Relationship Specialty Start Date End Date Physician, No Pcp PCP - General 05/28/25
== END 2025-06-21 09:53 | disposition home or self-care (01) ==
LOC: HO.HMCC 08:59
PROVIDERS: PCP Internal Medicine; Visit Provider Internal Medicine
DX: L03.115 Cellulitis of right lower limb (principal)

== ENCOUNTER 2025-08-29 08:20 | Outpatient (REF) | payer OTHER, SELFPAY ==
[2025-08-29 09:57] LABS: MANUAL DIFF FLAG NO
[2025-08-29 10:09] LABS: Hematocrit 48.4 % (42.0-52.0); Hemoglobin 15.6 g/dl (14.0-18.0); Imm Gran Abs Auto 0.00 X10*3/uL (0.00-0.03); Imm Gran Pct Auto 0.0 % (0.0-0.4); Lymphocytes Absolute Auto 1.7 X10*3/uL (1.2-4.9); Mean Corpuscular HGB Conc 32.2 g/dl (31.0-36.0); Mean Corpuscular Hemoglobin 28.8 pg (27.0-33.0); Mean Corpuscular Volume 89.3 fL (80.0-98.0); NRBC Abs Auto 0.000 X10*3/uL (0.0-0.012); NRBC Pct Auto 0.0 /100WBC (0.0-0.2); Platelet Count 213 X10*3/uL (160-400); Red Blood Count 5.42 X10*6/uL (4.60-5.80); White Blood Count 3.6 X10*3/uL (4.8-10.8)
--- OUTSIDE RECORDS SUMMARY | 2025-08-29 10:26 | XMS_ITS | Clinical Summary ---
Author Organization [facility] Address [address] [place] [phone] Phone Care Team Providers Care Cashier Credit Name Role Phone Physician, No Pcp Primary Care Provider Unavaila ble Allergies No known active allergies Medications albuterol HFA (PROAIR HFA ; PROVENTIL HFA [...] (two) times a day if needed for indigestion. 3 Active furosemide (LASIX) 20 mg tablet [...] mouth 1 (one) time each day. See instructions . 5 tablet 5 Active Encounters Date Type Department Care Team Description 06/13/2025 11:46 AM EDT - 06/13/2025 12:23 PM EDT Emergency [facility] Emergency [address] [place] [id number] Ankit Dash MD Viral upper respiratory tract infection (Primary Dx); Asthma exacerbation, mild Discharge Disposition: Home or Self Care from Last 3 Months Immunizations Immunization Administration Dates Next Due Human Rabies, Chicken Fibrob last Cell Culture, (Rabavert) 10/27/2023,10/20/2023,10/16/2023,2022 Human Rabies, Human Diploid Cell Culture, (Imovax) [...] Health Maintenance Due Date Last Done Comments Colorectal Cancer Screening: Colonoscopy 1976 Hepatitis B Vaccines (1 of 3 - 19+ 3-dose series) 1995 Pneumococcal Vaccine: Pediat rics (0 to 5 Years) and At-Risk Patients (6 to 49 Years) (1 of 2 - PCV) 1995 Cholesterol Screening (Lipid Panel) 10/04/2022 HIV Screening 10/04/2022 Hepatitis C Screening 10/04/2022 Social Influencers of Health Screening 10/04/2022 Depression Screening 11/01/2024 COVID-19 Vaccine (1 - 2023-2 5 season) 2025 Influenza Vaccine (#1) 2025 DTaP,Tdap,and Td Vaccines (2 - Td or Tdap) 10/13/2033 10/13/2023 RSV Immunization Adult Patie nts (1 - 1-dose 75+ series) 2051 HIB Vaccines Aged Out No longer eligi [...] on patient's age to complete this topic Insurance [facility] Care Teams Cashier Credit Relationship Specialty Start Date End Date Physician, No Pcp PCP - General 05/28/25
[2025-08-29 14:06] LABS: Alanine Aminotransferase 15 U/L (0-40); Albumin Level 3.8 g/dL (3.5-5.0); Alkaline Phosphatase 61 U/L (39-117); Anion Gap 9 (12-20); Aspartate Amino Transferase 24 U/L (5-37); Blood Urea Nitrogen 12 mg/dL (9-16); Calcium 9.1 mg/dL (8.4-10.2); Carbon Dioxide 30 mmol/L (22-29); Chloride 107 mmol/L (96-108); Estimated Glomerular Filt Rate > 60; Potassium 4.9 mmol/L (3.3-5.1); Sodium 141 mmol/L (135-145); Total Protein 6.9 g/dL (6.5-8.0)
== END 2025-08-29 08:21 | disposition home or self-care (01) ==
LOC: HO.HMGCLDS 08:20
PROVIDERS: PCP Internal Medicine; Visit Provider Internal Medicine
DX: F33.0 Major depressive disorder, recurrent, mild (principal); F41.1 Generalized anxiety disorder; I83.11 Varicose veins of right lower extremity with inflammation; I83.12 Varicose veins of left lower extremity with inflammation; E66.01 Morbid (severe) obesity due to excess calories; I89.0 Lymphedema, not elsewhere classified; G47.33 Obstructive sleep apnea (adult) (pediatric); K21.9 Gastro-esophageal reflux disease without esophagitis; Z68.42 Body mass index [BMI] 45.0-49.9, adult; Z79.899 Other long term (current) drug therapy
CPT/HCPCS: 36415; 80053; 83721; 84443; 85025; 99212

== ENCOUNTER 2025-08-29 08:20 | Outpatient (AMB) | payer OTHER, SELFPAY ==
--- NOTE | 2025-08-29 08:35 | A.OFFPC_ITS ---
Vital Signs 08/29/25 08:36 Height 5 ft 6 in Weight 292 lb BMI 47.1 BP 132/82 Blood Pressure Location Lt brachial Position Sitting Respiration 16 Pulse 68 Pulse Source Pulse Oximeter Temp 97.5 F Temp Source Oral Pulse Oximetry (%) 100 Oxygen Delivery Method Room Air Intake Visit Reasons: General Health / Lasix reschedule from 07/31 Allergies No Known Allergies Allergy (Verified 06/12/25 10:49) Medication List - Last Reconciled 08/29/25 by Zaina Junior MD albuterol sulfate 90 mcg/actuation (Ventolin HFA) 1 inh inhalation QID PRN 30 days albuterol sulfate 90 mcg/actuation 2 puffs inhalation Q4-6H PRN 30 days buspirone 5 mg PO BID PRN 90 days clonidine HCl 0.1 mg PO BEDTIME famotidine 20 mg PO BID furosemide (Lasix) 20 mg PO QAM hydrocortisone 2.5% 1 appl topical BID PRN 30 days ketoconazole 2% 1 appl topical DAILY nystatin 1 appl topical DAILY 30 days omeprazole 20 mg PO DAILY 90 days ondansetron mg PO sertraline 50 mg PO DAILY Tobacco use date assessed: 06/05/25 Dental Screening Dental Screen Date: 06/05/25 HPI General Health / Lasix reschedule from 07/31 HPI Details History of Present Illness The patient is a 50-year-old male presenting for follow-up on his chronic conditions. Anxiety: - The patient has a history of anxiety a nd is prescribed buspirone 5 mg, sertraline, and clonidine 0.1 mg at bedtime. - The clonidine is prescribed by his Caro Adams Lymphedema: - The patient has a history of lymphedem a of bilateral lower extremities, for which he takes furosemide once daily. - He reports his legs do not swell as mu ch as they used to but will swell sometimes after being on his feet for long periods at work. Gastroesophageal Reflux Disease (GERD): - The patient takes omeprazole for GERD. 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 - He has an appointment in September to daphney kendall changing the mask. with Neuro History of Cellulitis: - The patient has a history of celluliti s of the right leg, for which he was seen in June. Social History: - Employment: The patient reports workin g extra hours and feeling tired and overworked. Problem List - Lymphedema of bilateral lower extremit ies - Anxiety disorder - Gastroesophageal Reflux Disease (GERD) - Obstructive sleep apnea - History of cellulitis of right leg - Morbid Obesity Plan - An order for a blood test has been gabo fernanda to be done today to monitor electrolytes due to chronic furosemide use. - For management of lymphedema, the amber ent is advised to continue taking one furosemide tablet daily and to take two if the swelling becomes excessive. - The patient will follow up with his eep specialist in September to adjust his CPAP mask. - Follow up in the clinic in four months . Review of Systems - General: No fever no chills - Neurological: No headaches no dizziness - Ear nose throat: No sore throat no hearing difficulty no ear pain - Cardiovascular: No syncope, no chest pain, no palpitations - Gastrointestinal: No nausea vomiting or diarrhea - Endocrine: No polyuria polydipsia no heat intolerance - Genitourinary: No dysuria , no blood in urine Physical Exam General: No acute distress HEENT: No acute findings Neck: Supple Respiratory system: Able to talk in full sentences, no audible wheeze Cardiovascular: S1-S2 regular in rate and rhythm, blood pressure 132/82 Gastrointestinal: No pain Extremities: No new findings, reports right leg cellulitis history, lymphedema in both lower extremities 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 x3 motor intact Skin: Normal turgor PFSH Medical History Tinea corporis Encounter for general adult medical examination with abnormal findings Swelling of lower extremity Sleep apnea in adult Change in bowel function Snoring Witnessed apneic spells Daytime sleepiness Erythematous rash Complex sleep apnea syndrome Tinea pedis of both feet Dog bite of abdomen Colon cancer screening Surgical History Hx of cholecystectomy Family History Brother Substance use disorder Brother Substance use disorder Maternal Uncle Substance use disorder Paternal Uncle Substance use disorder Social History Housing: House Alcohol intake: former Patient Tobacco Use Status: Never used Tobacco e-Cigarette/Vaping Use: Never Used Substance Use Type: Marijuana service: No Current occupational status: unemployed 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 Current occupational exposures/hazards: No Cognitive needs: No Hearing needs: No Vision needs: Yes Questionnaire Thrive Questionnaire Date Thrive assessed: 02/27/25 I am a: Patient What is your living situation today?: I do not have a steady places to live I am temporarily staying with others Within the past 12 months, did the food you bought not last and you didn't have the money to get more?: Never true Within the past 12 months, did you worry whether your food would run out before you got money to buy more?: Sometimes True Do you have trouble paying for medicines?: No Do you have trouble getting transportation to medical appointments?: No Do you have trouble paying your heating and electricity bill?: No Do you have trouble taking care of your child, family member or friend?: No Do you have trouble with day-to-day activities such as bathing, preparing meals, shopping, managing finances, etc.?: No Are you currently unemployed and looking for a job?: No Are you interested in more education?: No Please select the resources that you would like help with: Housing/Jail THRIVE Score: 2 ALLY-7 AMB Questionnaire ALLY-7 Date ALLY - 7 assessed: 03/14/25 Source: Developed by Drs. Vish Hunter, Radha Crawley, Don Chavez and colleagues, with an educational tristian from [employer]. Physical exam (Primary Care) Vital Signs: Last Vital Signs Temp 97.5 F 08/29/25 08:36 Pulse 68 08/29/25 08:36 Resp 16 08/29/25 08:36 BP 132/82 08/29/25 08:36 Pulse Ox 100 08/29/25 08:36 Oxygen Delivery Method Room Air 08/29/25 08:36 BMI result Body Mass Index 47.1 Tobacco/Smoking Status: Tobacco use Status Tobacco use date assessed 06/05/25 08/29/25 08:40 Patient Tobacco Use Status Never used Tobacco 08/29/25 08:40 e-Cigarette/Vaping Use Never Used 08/29/25 08:40 Thrive Assessment: Date of Thrive Assessment Date Thrive assessed 02/27/25 08/29/25 08:40 Coding Level of Care Code Est Pt Level 4 (00880) Complex EM visit Add On G2211 Diagnoses Lymphedema of both lower extremities I89.0 CARLA (obstructive sleep apnea) G47.33 Gastroesophageal reflux disease without esophagitis K21.9 Esophagitis presence: without esophagitis Morbid obesity due to excess calories E66.01 Anxiety, generalized F41.1 Assessment & Plan Assessment & Plan (1) Lymphedema of both lower extremities: Code(s): I89.0 - Lymphedema, not elsewhere classified Category: Medical (2) CARLA (obstructive sleep apnea): Comment: Severe degree of sleep apnea. The total AHI was 24/hr and oxygen frederick was 71 %. Code(s): G47.33 - Obstructive sleep apnea (adult) (pediatric) Category: Medical (3) Acid reflux: Code(s): K21.9 - Gastro-esophageal reflux disease without esophagitis Category: Medical Qualifiers: Esophagitis presence: without esophagitis Qualified Code(s): K21.9 - Gastro-esophageal reflux disease without esophagitis (4) Morbid obesity due to excess calories: Code(s): E66.01 - Morbid (severe) obesity due to excess calories Category: Medical (5) Anxiety, generalized: Code(s): F41.1 - Generalized anxiety disorder Category: Medical Plan Anxiety: - The patient has a history of anxiety and is prescribed buspirone 5 mg, sertraline, and clonidine 0.1 mg at bedtime. - The clonidine is prescribed by his Neuro, Caro Packer Lymphedema: - The patient has a history of lymphedema of bilateral lower extremities, for which he takes furosemide once daily. - He reports his legs do not swell as much as they used to but will swell sometimes after being on his feet for long periods at work. Gastroesophageal Reflux Disease (GERD): - The patient takes omeprazole for GERD. Sleep Apnea: - The patient has a history of sleep apnea and reports using his CPAP machine sometimes. - He has an appointment in September to discuss changing the mask. with Neuro History of Cellulitis: - The patient has a history of cellulitis of the right leg, for which he was seen in June. Social History: - Employment: The patient reports working extra hours and feeling tired and overworked. Problem List - Lymphedema of bilateral lower extremities - Anxiety disorder - Gastroesophageal Reflux Disease (GERD) - Obstructive sleep apnea - History of cellulitis of right leg - Morbid Obesity Plan - An order for a blood test has been placed to be done today to monitor electrolytes due to chronic furosemide use. - For management of lymphedema, the patient is advised to continue taking one furosemide tablet daily and to take two if the swelling becomes excessive. - The patient will follow up with his sleep specialist in September to adjust his CPAP mask. - Follow up in the clinic in four months.
[2025-08-29 08:36] VITALS: BP 132/82; PULSE 68; RESP 16; TEMP 36.4; O2SAT 100; BMI 47.1
== END 2025-08-29 08:53 | disposition home or self-care (01) ==
LOC: HO.HMCC 08:21
PROVIDERS: PCP Internal Medicine; Visit Provider Internal Medicine
DX: G47.33 Obstructive sleep apnea (adult) (pediatric) (principal); E66.01 Morbid (severe) obesity due to excess calories; Z68.42 Body mass index [BMI] 45.0-49.9, adult; I89.0 Lymphedema, not elsewhere classified; K21.9 Gastro-esophageal reflux disease without esophagitis; F41.1 Generalized anxiety disorder